=== PATIENT | male | born 1970 | race Caucasian/White ===

== ENCOUNTER 2017-12-25 16:21 | Emergency (ER) | payer OTHER, SELFPAY ==
[2017-12-25 16:22] VITALS: BP 125/78; PULSE 76; RESP 16; TEMP 36.3; O2SAT 98; BMI 25.8
--- NOTE | 2017-12-25 16:35 | RAD_ITS ---
STUDY: X-RAY - RIGHT WRIST REASON FOR EXAM: Male, 47 years old. Trauma. Pain. TECHNIQUE: 3 view(s) of the wrist were obtained. COMPARISON: None. FINDINGS: There is no evidence of fracture or dislocation. There are no significant degenerative changes. There are no radiodense foreign bodies. RAD/Wrist min 3 Views IMPRESSION: No fracture or dislocation. Electronically Signed: Shay Curtis, at 17:01 EDT Tel , Service support ,
--- NOTE | 2017-12-25 18:27 | ED.VISSUMM ---
- ER Visit Summary Date of Service: 12/25/17 Chief Complaint: Right wrist pain History of Present Illness: The patient is a 47 M presenting with right wrist pain. Patient states he fell down 2 steps 2 days ago. He was carrying a duffel bag. He lost his balance and fell catching himself with his right upper extremity. He did not hit his head or lose consciousness. He is left-handed. He complains of persistent pain in the right wrist. He is taking Aleve at home. Physical Examination: Vitals are stable. Patient is afebrile. Alert no acute distress. HEENT exam is unremarkable. Lungs are clear and equal bilaterally. Heart is regular rate and rhythm. Extremities mild lateral right wrist tenderness, no snuffbox tenderness, active full range of motion Skin is warm and dry. No focal neurologic deficit. Remainder of exam is unremarkable. Emergency Department Course and Treatment: X-ray right wrist shows no acute fracture. He is given a thumb spica splint. Advised to ice, elevate, use NSAIDs. Advised to follow-up with primary care physician. Advised return to ED for any worsening complaints. Disposition: Discharge home Impression: Right wrist injury This note was generated with [employer] dictation software. It may contain incorrect words, spelling, and punctuation that were not noted in review of the chart prior to signing ED Disposition - Plan for ED Patient: Chief Complaint: Upper Extremity Injury Referrals: Gurvinder Navarro MD [Primary Care Provider] -
--- NOTE | 2017-12-25 18:31 | ED.DEP ---
ED Disposition - Plan for ED Patient: Chief Complaint: Upper Extremity Injury Instructions: ED Sprain Wrist Referrals: Gurvinder Navarro MD [Primary Care Provider] -
[2017-12-25 18:42] VITALS: BP 129/96; PULSE 56; RESP 17; O2SAT 98
== END 2017-12-25 18:43 | disposition home or self-care (01) ==
LOC: ED 18:29
PROVIDERS: Emergency Provider Emergency Medicine; Family Provider Family Medicine; PCP Family Medicine
DX: S63.501A Unspecified sprain of right wrist, initial encounter (principal); W10.9XXA Fall (on) (from) unspecified stairs and steps, initial encounter; Y93.9 Activity, unspecified; Y92.9 Unspecified place or not applicable; Z79.899 Other long term (current) drug therapy
CPT/HCPCS: 73110; 99283

== ENCOUNTER 2018-07-24 16:47 | Emergency (ER) | payer OTHER, SELFPAY ==
[2018-07-24 16:48] VITALS: BP 114/89; PULSE 94; RESP 16; TEMP 36.9; O2SAT 97; BMI 27.4
--- NOTE | 2018-07-24 17:20 | ED.DCSUM_ITS ---
- ER Visit Summary Date of Service: 07/24/18 Chief Complaint: Right knee swelling. History of Present Illness: The patient is a 48 M nontraumatic right knee swelling over 2 weeks. History of similar in the past. History of psoriatic arthritis on methotrexate. No fevers. Denies any increased activity. Is followed by Dr. Navarro Reports called office today had appointment tomorrow however states he had to work. His next appointment would not be for a month. Uses Aleve as needed for pain. Physical Examination: General: Alert and oriented ?3, no acute distress HEENT: Normocephalic, atraumatic. Moist mucosa membranes Neck: supple, nontender. Cardiovascular: Regular rate and rhythm, no murmurs Respiratory: Normal breath sounds, symmetric, no distress Abdomen: Soft, nontender, nondistended Extremities: Nontender, no edema, pulses intact ?4. Right lower extremity: Knee extensor intact. There is suprapatellar swelling and swelling medial laterally. There is no erythema. No pain with short arc. Skin intact. Neurovascular intact distally. Neuro: no focal neurological deficits. Test Results: Right knee x-ray: Osteoarthritis Emergency Department Course and Treatment: Patient nontoxic, exam does not annette ear to be septic joint he had recurrent symptoms with history of psoriatic arthritis. Discussed with patient who performed knee aspiration with his consent. Written consent, risks and benefits discussed. Sterile conditions with sterile gloves and Betadine. Performed bedside with timeout 1831. Total of 10 cc yellow synovium obtained. This was sent for culture. 1 cc of Kenalog was injected into the joint which helped the patient in the past. No antibiotics at this time. He will follow-up with his orthopedist. All questions were answered. Treatment Plan: [] Disposition: Discharge Impression: Right knee swelling status post joint aspiration This note was generated with [employer] dictation software. It may contain incorrect words, spelling, and punctuation that were not noted in review of the chart prior to signing ED Disposition - Plan for ED Patient: Disposition: Home or Assisted Living Diagnosis: Swelling of right knee joint Referrals: Gurvinder Navarro MD [Primary Care Provider] - Shay Navarro MD [STAFF PHYSICIAN] - 5-7 Days Additional Instructions: Knee aspiration sent for culture and is pending. Status post 1 mL of Kenalog injected into the joint. Follow-up with your orthopedist.
--- NOTE | 2018-07-24 17:30 | RAD_ITS ---
STUDY: X-RAY - RIGHT KNEE REASON FOR EXAM: Male, 48 years old. Swelling TECHNIQUE: 4 view(s) of the knee. COMPARISON: None. FINDINGS: Normal visualized distal femur. Normal visualized proximal tibia and fibula. Normal proximal tibiofibular articulation. Narrowed medial femorotibial compartment. Normal lateral femorotibial compartment. Narrowed patellofemoral articulation. The soft tissue structures are unremarkable. RAD/Knee 4 or More Views IMPRESSION: Degenerative changes. No evidence for acute fracture Electronically Signed: Wilbert Arreaga MD at 17:52 EDT , Service support ,
[2018-07-24] MEDS: Triamcinolone Acetonide 40 MG/ML Vial IU (18:58)
== END 2018-07-24 19:08 | disposition home or self-care (01) ==
PROVIDERS: Emergency Provider Emergency Medicine; Family Provider Family Medicine; PCP Family Medicine
DX: M25.461 Effusion, right knee (principal); L40.50 Arthropathic psoriasis, unspecified; K21.9 Gastro-esophageal reflux disease without esophagitis
CPT/HCPCS: 20610; 73564; 87070; 87075; 87205; 99282

== ENCOUNTER → 2019-09-21 15:58 | Outpatient (CLI) | payer OTHER, SELFPAY ==
[2019-09-21 17:37] LABS: Absolute Lymphocyte Count 2.26 X10^3/uL (0.83-4.51); Absolute Neutrophil Count 3.7 X10^3/uL (2.0-7.7); Basophil% 1.5 % (0-1); Eosinophil# 0.08 X10^3/uL; Eosinophils% 1.2 % (0-5); Hematocrit 42.5 % (40-54); Hemoglobin 13.7 g/dL (13.0-16.5); Lymphocyte # 2.26 X10^3/ul (4.0); Lymphocyte % 33.6 % (19-41); Mean Corp Hgb Conc 32.2 g/dL (32-36); Mean Corpuscular Hgb 31.1 pg (27.0-32.0); Mean Corpuscular Volume 96.6 fL (80-94); Mean Platelet Vol. 9.3 fl (6.2-12.0); Monocyte# 0.58 X10^3/uL; Monocyte% 8.6 % (0-10); NRBC Flagged by Analyzer 0 % (0-5); Neutrophil # 3.69 X10^3/uL (2.7-7.7); Neutrophil % 54.8 % (47-70); Platelet Count 326 K/mm3 (150-450); RBC Distribution Width SD 45.4 fl (35.1-43.9); White Blood Count 6.7 K/mm3 (4.4-11.0)
[2019-09-21 18:10] LABS: AST(SGOT) 15 U/L (15-37); Alanine Aminotransfer ALT/SGPT 20 U/L (16-61); Albumin, Serum 3.6 g/dL (3.2-5.0); Alkaline Phosphatase 166 U/L (45-117); Bilirubin, Direct 0.11 mg/dL (0.00-0.30); Globulin 3.7 g/dL (2.2-4.2); Protein, Total 7.3 g/dL (6.4-8.2)
== END ==
PROVIDERS: PCP Family Medicine; Referring Provider Family Medicine; Visit Provider Family Medicine
DX: L40.50 Arthropathic psoriasis, unspecified (principal)
CPT/HCPCS: 36415; 80076; 85025

== ENCOUNTER → 2019-11-13 18:12 | Outpatient (CLI) | payer OTHER, SELFPAY | PROVIDERS: PCP Family Medicine | DX: R05 Cough (principal) | CPT/HCPCS: 87635; 94799; U0003 ==

== ENCOUNTER 2021-04-30 15:48 | Outpatient (CLI) | payer OTHER, SELFPAY ==
[2021-04-30 17:48] LABS: Absolute Lymphocyte Count 2.35 X10^3/uL (0.83-4.51); Absolute Neutrophil Count 3.6 X10^3/uL (2.0-7.7); Basophil# 0.07 X10^3/uL; Basophil% 1.1 % (0-1); Eosinophil# 0.13 X10^3/uL; Hematocrit 41.5 % (40-54); Hemoglobin 13.8 g/dL (13.0-16.5); Lymphocyte # 2.35 X10^3/ul (0.83-4.51); Lymphocyte % 35.7 % (19-41); Mean Corp Hgb Conc 33.3 g/dL (32-36); Mean Corpuscular Hgb 31.2 pg (27.0-32.0); Mean Corpuscular Volume 93.9 fL (80-94); Mean Platelet Vol. 9.5 fl (6.2-12.0); Monocyte# 0.38 X10^3/uL; Monocyte% 5.8 % (0-10); NRBC Flagged by Analyzer 0 % (0-5); Neutrophil # 3.63 X10^3/uL (2.7-7.7); Neutrophil % 55.1 % (47-70); Platelet Count 362 K/mm3 (150-450); RBC Distribution Width CV 12.8 % (11.6-14.6); Red Blood Count 4.42 M/mm3 (4.6-6.2); White Blood Count 6.6 K/mm3 (4.4-11.0)
[2021-04-30 18:02] LABS: Erythrocyte Sedimentation Rate 23 mm/hr (0-20)
[2021-04-30 18:10] LABS: ALB/GLOB Ratio 0.9 RATIO (0.9-2.4); AST(SGOT) 19 U/L (15-37); Alanine Aminotransfer ALT/SGPT 22 U/L (16-61); Albumin, Serum 3.6 g/dL (3.2-5.0); Alkaline Phosphatase 182 U/L (45-117); Anion Gap 5 (5-15); BUN 12 mg/dL (7-18); BUN/Creat Ratio 13.1 RATIO (10-20); CRP 8.45 mg/L (0.0-3.0); Calcium,Total 8.5 mg/dL (8.5-10.1); Chloride 107 mmol/L (98-107); Creatinine, Serum 0.91 mg/dL (0.70-1.30); EST Glomerular Filtration Rate 93 mL/min (>60); Est Glom Filt Rate - Afr Amer 112 mL/min (>60); Globulin 4.2 g/dL (2.2-4.2); Glucose 87 mg/dL (74-106); Potassium 3.9 mmol/L (3.5-5.1); Protein, Total 7.8 g/dL (6.4-8.2); Rheumatoid Factor < 10.0 IU/mL (<15); Sodium Level 140 mmol/L (136-145)
[2021-05-01 09:54] LABS: Hepatitis B Surface Antibody Non-Reactive; Hepatitis B Surface Antigen Non-Reactive (Nonreactive); Hepatitis C Antibody Non-Reactive (Nonreactive)
[2021-05-04 22:07] LABS: QNTFERON TB Mitogen Value > 10.00 IU/mL (.); QNTFERON TB Nil Value 0.03 IU/mL (.); QNTFERON TB1+ Ag Value 0.03 IU/mL (.); QNTFERON TB2+ Ag Value 0.04 IU/mL (.)
[2021-05-04 22:33] LABS: CCP IgG Antibodies 2 units (0-19); QNTIFERON TB Positive Criteria Negative (Negative)
== END 2021-04-30 23:59 | disposition short-term general hospital (02) ==
LOC: MTLAB 15:49
PROVIDERS: PCP Family Medicine; Referring Provider Internal Medicine Rheumatology; Visit Provider Internal Medicine Rheumatology
DX: L40.59 Other psoriatic arthropathy (principal); L40.8 Other psoriasis; E78.5 Hyperlipidemia, unspecified; F32.A Depression, unspecified
CPT/HCPCS: 36415; 80053; 85025; 85652; 86140; 86200; 86431; 86480; 86706; 86803; 87340

== ENCOUNTER 2021-05-01 18:01 | Outpatient (CLI) | payer OTHER, SELFPAY ==
[2021-05-01 18:03] LABS: Pathologist Comment May follow
[2021-05-01 19:15] LABS: Synovial Fld Polynuclear WBC # 0.229 10^3/uL
[2021-05-01 20:32] LABS: RBC /Synovial Fluid 0.009 10^6/uL (0)
[2021-05-01 21:02] LABS: AUTO B FLUID DILUENT BKGD CT WBC <0.1 RBC <0.01 (W<.1,R<.01); CRYSTALS, BODY FLUID See PATH REV; Source / Synovial Fluid R KNEE; Source- Body Fluid SYNOVIAL
[2021-05-01 21:03] LABS: Appearance /Synovial Fluid Cloudy (CLEAR); Color / Synovial Fluid Yellow (Pale Yellow); Lymph 71 %; Monocyte /Synovial Fluid 11 %; Neutrophil 13 % (0-25); Other Cell /Synovial Fluid 5 %
[2021-05-04 12:44] LABS: Pathologist Review Reviewed
== END 2021-05-01 23:59 | disposition short-term general hospital (02) ==
PROVIDERS: PCP Family Medicine; Visit Provider Internal Medicine Rheumatology
DX: L40.59 Other psoriatic arthropathy (principal); L40.8 Other psoriasis; E78.5 Hyperlipidemia, unspecified; F32.A Depression, unspecified; Z79.899 Other long term (current) drug therapy
CPT/HCPCS: 87070; 87075; 87205; 89050; 89051; 89060

== ENCOUNTER 2021-07-01 15:56 | Outpatient (CLI) | payer OTHER, SELFPAY ==
[2021-07-01 17:41] LABS: Absolute Lymphocyte Count 2.12 X10^3/uL (0.83-4.51); Absolute Neutrophil Count 4.5 X10^3/uL (2.0-7.7); Basophil# 0.08 X10^3/uL; Basophil% 1.1 % (0-1); Eosinophils% 1.4 % (0-5); Hematocrit 42.1 % (40-54); Hemoglobin 14.7 g/dL (13.0-16.5); Lymphocyte # 2.12 X10^3/ul (0.83-4.51); Mean Corp Hgb Conc 34.9 g/dL (32-36); Mean Corpuscular Hgb 32.8 pg (27.0-32.0); Mean Platelet Vol. 9.9 fl (6.2-12.0); Monocyte% 6.8 % (0-10); NRBC Flagged by Analyzer 0 % (0-5); Neutrophil % 61.6 % (47-70); Platelet Count 291 K/mm3 (150-450); RBC Distribution Width CV 14.1 % (11.6-14.6); Red Blood Count 4.48 M/mm3 (4.6-6.2); White Blood Count 7.3 K/mm3 (4.4-11.0)
[2021-07-01 18:08] LABS: ALB/GLOB Ratio 1.1 RATIO (0.9-2.4); AST(SGOT) 24 U/L (15-37); Alanine Aminotransfer ALT/SGPT 28 U/L (16-61); Albumin, Serum 3.8 g/dL (3.2-5.0); Alkaline Phosphatase 149 U/L (45-117); Anion Gap 4 (5-15); BUN 12 mg/dL (7-18); BUN/Creat Ratio 11.2 RATIO (10-20); Calcium,Total 8.2 mg/dL (8.5-10.1); Chloride 109 mmol/L (98-107); Creatinine, Serum 1.07 mg/dL (0.70-1.30); EST Glomerular Filtration Rate 77 mL/min (>60); Est Glom Filt Rate - Afr Amer 93 mL/min (>60); Globulin 3.4 g/dL (2.2-4.2); Glucose 99 mg/dL (74-106); Potassium 3.9 mmol/L (3.5-5.1); Protein, Total 7.2 g/dL (6.4-8.2); Sodium Level 141 mmol/L (136-145)
== END 2021-07-01 23:59 | disposition home or self-care (01) ==
LOC: MTLAB 15:57
PROVIDERS: PCP Family Medicine; Referring Provider Internal Medicine Rheumatology; Visit Provider Internal Medicine Rheumatology
DX: L40.59 Other psoriatic arthropathy (principal); M25.561 Pain in right knee; L40.8 Other psoriasis; F32.A Depression, unspecified; E78.5 Hyperlipidemia, unspecified; Z79.899 Other long term (current) drug therapy
CPT/HCPCS: 36415; 80053; 85025

== ENCOUNTER → 2021-09-02 | Outpatient (CLI) | payer OTHER, SELFPAY ==
[2021-09-02 17:32] LABS: Absolute Lymphocyte Count 1.91 X10^3/uL (0.83-4.51); Absolute Neutrophil Count 3.9 X10^3/uL (2.0-7.7); Basophil# 0.06 X10^3/uL; Eosinophil# 0.11 X10^3/uL; Eosinophils% 1.8 % (0-5); Hematocrit 43.4 % (40-54); Hemoglobin 14.6 g/dL (13.0-16.5); Lymphocyte # 1.91 X10^3/ul (0.83-4.51); Lymphocyte % 30.4 % (19-41); Mean Corp Hgb Conc 33.6 g/dL (32-36); Mean Corpuscular Hgb 32.5 pg (27.0-32.0); Mean Corpuscular Volume 96.7 fL (80-94); Mean Platelet Vol. 9.7 fl (6.2-12.0); Monocyte% 4.8 % (0-10); NRBC Flagged by Analyzer 0 % (0-5); Neutrophil # 3.89 X10^3/uL (2.7-7.7); Neutrophil % 61.8 % (47-70); Platelet Count 302 K/mm3 (150-450); RBC Distribution Width CV 13.1 % (11.6-14.6); RBC Distribution Width SD 46.2 fl (35.1-43.9); Red Blood Count 4.49 M/mm3 (4.6-6.2); White Blood Count 6.3 K/mm3 (4.4-11.0)
[2021-09-02 18:28] LABS: AST(SGOT) 23 U/L (15-37); Alanine Aminotransfer ALT/SGPT 35 U/L (16-61); Albumin, Serum 3.7 g/dL (3.2-5.0); Alkaline Phosphatase 146 U/L (45-117); Anion Gap 8 (5-15); BUN 14 mg/dL (7-18); Calcium,Total 8.4 mg/dL (8.5-10.1); Chloride 108 mmol/L (98-107); Cholesterol 260 mg/dL (200); Creatinine, Serum 1.17 mg/dL (0.70-1.30); EST Glomerular Filtration Rate 69 mL/min (>60); Est Glom Filt Rate - Afr Amer 84 mL/min (>60); Globulin 3.6 g/dL (2.2-4.2); Glucose 91 mg/dL (74-106); High Density Lipoprotein 29 mg/dL; Potassium 3.5 mmol/L (3.5-5.1); Protein, Total 7.3 g/dL (6.4-8.2); Sodium Level 140 mmol/L (136-145); Thyroid Stim Hormone (TSH) 1.79 uIU/mL (0.358-3.74); Triglycerides 498 mg/dL
[2021-09-05 07:32] LABS: Anti-Thyroglobulin AB < 1.0 IU/mL (0.0-0.9); Thyroid Peroxidase AB < 8 IU/mL (0-34)
[2021-09-05 07:33] LABS: Thyroglobulin, Serum Qt. 12.7 ng/mL (1.4-29.2)
== END | disposition home or self-care (01) ==
LOC: MFPLAB 16:32
PROVIDERS: PCP Family Medicine; Visit Provider Family Medicine
DX: K21.9 Gastro-esophageal reflux disease without esophagitis (principal); E04.1 Nontoxic single thyroid nodule; E78.5 Hyperlipidemia, unspecified
CPT/HCPCS: 36415; 80053; 80061; 84432; 84439; 84443; 85025; 86376; 86800

== ENCOUNTER → 2021-09-10 | Outpatient (CLI) | payer OTHER, SELFPAY ==
[2021-09-10 10:50] LABS: Cholesterol 233 mg/dL (200); High Density Lipoprotein 38 mg/dL; Triglycerides 208 mg/dL; Very Low Density Lipoprotein 42 mg/dL (5-40)
== END | disposition home or self-care (01) ==
LOC: MFPLAB 08:28
PROVIDERS: PCP Family Medicine; Referring Provider Family Medicine; Visit Provider Family Medicine
DX: E78.5 Hyperlipidemia, unspecified (principal)
CPT/HCPCS: 36415; 80061

== ENCOUNTER → 2021-09-14 | Outpatient (CLI) | payer OTHER, SELFPAY ==
--- NOTE | 2021-09-14 12:00 | US_ITS ---
STUDY: THYROID ULTRASOUND REASON FOR EXAM: Male, 51 years old. THYROID NODULE TECHNIQUE: Ultrasound evaluation of the thyroid was performed with real-time and static aguilar-scale imaging. COMPARISON: Prior comparison studies are not available for review at this time. FINDINGS: RIGHT LOBE: The right lobe of the thyroid gland measures 4.1 x 1.8 x 1.8cm. There is a homogeneous echotexture. There is a nodule. This is 9 x 5 x 9 mm. The lesion is solid with regular margins and intra-nodular doppler flow. LEFT LOBE: The left lobe of the thyroid gland measures 4.1 x 1.5 x 1.2 cm. There is a homogeneous echotexture. There are no demonstrated solid, cystic or complex lesions. ISTHMUS: The isthmus measures 1 mm. US/Thyroid IMPRESSION: There are RIGHT nodules. This nodule is mixed cystic and solid, anechoic, [id number], smoothly marginated and contains no echogenic foci. TI-RADS points: 1. TI-RADS category: TR1. This nodule is benign and no FNA or follow-up is necessary. Electronically Signed: Sung Ford MD at 15:08 EDT ,
== END | disposition home or self-care (01) ==
PROVIDERS: PCP Family Medicine; Referring Provider Family Medicine; Visit Provider Family Medicine
DX: E04.1 Nontoxic single thyroid nodule (principal)
CPT/HCPCS: 76536

== ENCOUNTER → 2021-10-07 | Outpatient (CLI) | payer OTHER, SELFPAY ==
[2021-10-07 17:37] LABS: Absolute Lymphocyte Count 2.09 X10^3/uL (0.83-4.51); Absolute Neutrophil Count 4.5 X10^3/uL (2.0-7.7); Basophil# 0.06 X10^3/uL; Basophil% 0.8 % (0-1); Eosinophil# 0.11 X10^3/uL; Eosinophils% 1.5 % (0-5); Hematocrit 45.2 % (40-54); Hemoglobin 14.9 g/dL (13.0-16.5); Lymphocyte # 2.09 X10^3/ul (0.83-4.51); Lymphocyte % 28.1 % (19-41); Mean Corpuscular Hgb 32.6 pg (27.0-32.0); Mean Corpuscular Volume 98.9 fL (80-94); Mean Platelet Vol. 9.9 fl (6.2-12.0); Monocyte# 0.66 X10^3/uL; Monocyte% 8.9 % (0-10); NRBC Flagged by Analyzer 0 % (0-5); Neutrophil # 4.48 X10^3/uL (2.7-7.7); Neutrophil % 60.3 % (47-70); Platelet Count 320 K/mm3 (150-450); RBC Distribution Width CV 13.2 % (11.6-14.6); Red Blood Count 4.57 M/mm3 (4.6-6.2); White Blood Count 7.4 K/mm3 (4.4-11.0)
[2021-10-07 18:18] LABS: ALB/GLOB Ratio 1.2 RATIO (0.9-2.4); AST(SGOT) 28 U/L (15-37); Alanine Aminotransfer ALT/SGPT 51 U/L (16-61); Albumin, Serum 4.1 g/dL (3.2-5.0); Alkaline Phosphatase 142 U/L (45-117); Anion Gap 5 (5-15); BUN 10 mg/dL (7-18); Calcium,Total 8.7 mg/dL (8.5-10.1); Chloride 106 mmol/L (98-107); Creatinine, Serum 1.25 mg/dL (0.70-1.30); EST Glomerular Filtration Rate 64 mL/min (>60); Est Glom Filt Rate - Afr Amer 78 mL/min (>60); Globulin 3.3 g/dL (2.2-4.2); Glucose 88 mg/dL (74-106); Potassium 3.7 mmol/L (3.5-5.1); Protein, Total 7.4 g/dL (6.4-8.2); Sodium Level 139 mmol/L (136-145)
== END | disposition home or self-care (01) ==
LOC: MTLAB 16:34
PROVIDERS: PCP Family Medicine; Referring Provider Internal Medicine Rheumatology; Visit Provider Internal Medicine Rheumatology
DX: L40.59 Other psoriatic arthropathy (principal); M25.561 Pain in right knee; L40.8 Other psoriasis; F32.A Depression, unspecified; E78.5 Hyperlipidemia, unspecified; Z79.899 Other long term (current) drug therapy
CPT/HCPCS: 36415; 80053; 85025

== ENCOUNTER 2021-12-29 07:01 | Day surgery (SDC) | payer OTHER, SELFPAY ==
[2021-12-29] VITALS (7 sets, daily range): BP systolic 94–144; BP diastolic 68–97; PULSE 57–67; RESP 17–18; TEMP 36.2–36.4; O2SAT 97–98; BMI 27.0
--- NOTE | 2021-12-29 07:06 | HP.PCM_ITS ---
History and Physical Date of Admission: 12/29/21 Visit Reasons:?Gastroesophageal reflux disease (GERD) Chief Complaint: GERD [employer] Permit Agent Required: No Is patient in pain?: No Allergies No Known Allergies Allergy (Verified 11/23/21 14:29) Medications citalopram 40 mg tablet 40 mg PO DAILY 02/29/16 [History Confirmed 11/23/21] methotrexate sodium 2.5 mg tablet 15 mg PO Q7D 02/29/16 [History Confirmed 11/23/21] pantoprazole 40 mg tablet,delayed release 40 mg PO DAILY 07/24/18 [History Confirmed 11/23/21] rosuvastatin 10 mg tablet 20 mg PO QHS 07/24/18 [History Confirmed 11/23/21] acetaminophen 325 mg capsule (Tylenol) 325 mg PO ONCE PRN 12/01/20 [History Confirmed 11/23/21] PFSH Medical History? Depression Surgical History? H/O knee surgery Family History? Other Arthritis Heart disease Social History? household members:? none housing:? house Smoking Status:? Never smoker Tobacco: How many years used:? 38 Smokeless tobacco user:? snuff alcohol intake:? current alcohol intake frequency: 0-2 drinks per day what type of physical activity do you participate in:? none do you feel safe at home:? Yes HPI HPI HPI: SILVESTRE VIDAL, is a 51 M who presents to the office today for surgical consultation regarding gastroesophageal reflux disease.? The patient is being referred by Dr Adria Conrad and a written copy of my surgical consult and recommendations will be returned to him.? Per patient report his reflux symptoms started in 2017 with epigastric and retrosternal burning.? Patient's been taking [id number] Pepcid.? His symptoms are not controlled.? He currently is on pantoprazole 40 mg orally daily.? He also requires methotrexate for psoriatic arthritis.? Patient states that he has a remote upper endoscopy perhaps in 2005.? He has never had a colonoscopy and he states that his mother had a history of colon cancer.? He stopped chewing tobacco about 6 months ago.? That seems to have helped but he still drinks a significant mount of Mountain Dew.? 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 He has not noticed any change in his stool no bright red blood per rectum or melena.? No abdominal pain.? Since he stopped using chewing tobacco he is gained 8 pounds in weight. He denies any abdominal pain.? He states that other than for psoriatic arthritis he feels that his health is good.? No history of DVT ROS General General: No weight change, appetite, fatigue, colon cancer, breast cancer or weakness HEENT HEENT: No difficulty swallowing, eye injury, eye surgery, swollen glands or hoarseness Endo Endocrine: No thyroid disease, diabetes mellitus, thyroid cancer, Hair loss, heat intolerance or cold intolerance Skin Skin: No rash or changing moles Breast Breast: No left breast lump, right breast lump, nipple discharge, breast pain, abnormal mammogram, abnormal US or breast enlargement Musc Musculoskeletal: Yes back problems and arthritis; No rheumatoid arthritis, gout or joint pain Cardio Cardiovascular: No murmur, pacemaker, heart disease, atrial fibrillation, high blood pressure, heart attack, heart stent, palpitations, shortness of breat with exertion or chest pain Psych Psychiatric: Yes depression and anxiety; No hearing voices Resp Respiratory: Yes shortness of breath, No sleep apnea, No cough, No COPD, No asthma, No emphysema and No wheezing Gastro Gastrointestinal: No abdominal pain, No nausea or vomiting, Yes diarrhea, No constipation, No blood in stool, Yes acid reflux, No hemorrhoids, No ulcers, No gallbladder problem and No black,tarry stools Daniel Hematologic: No blood thinners, No blood disorders, No bleeding, No anemia and No blood clots Neuro Neurologic: No system reviewed and no additional complaints, except as documented, No as per HPI, No abnormal gait, No abnormal hearing, No abnormal movements, No abnormal speech, No behavioral changes, No burning sensations, No confusion, No convulsions, No disequilibrium, No dizziness, No localized weakness, No frequent falls, No headache(s), No lack of coordination, No loss of vision, No memory loss, No numbness, No other visual disturbances, No radicular pain, No restless legs, No sensory deficit, No syncope, No tingling, No tremor(s), No weakness and No other Exam Const General: cooperative, comfortable and no acute distress Nutritional Appearance: average body habitus Orientation: alert and awake [facility] Head: normal to inspection Eyes General: appearance normal, both eyes and all related structures Neck Neck: normal visual inspection Chest Chest palpation & inspection: normal inspection of the chest Resp Effort & Inspection: normal respiratory effort Auscultation: clear to auscultation bilaterally Cardio Rate: regular rate Rhythm: regular rhythm GI Palpation: soft and no hepatosplenomegaly Auscultation: normal bowel sounds Musc Cervical Spine: normal cervical lordosis Neuro General: patient alert, patient awake, patient oriented x3 and oriented Extrem General: no calf tenderness Psych Appearance: grossly normal Assessment and Plan Assessment and Plan (1) Gastroesophageal reflux disease: (2) Depression: ?Status:?Acute (3) HNP (herniated nucleus pulposus), lumbar: ?Status:?Acute (4) H/O knee surgery: ?Status:?Acute (5) Screening for intestinal cancer: ?Status:?Acute Plan The patient has had a very long history of gastroesophageal reflux disease.? Currently he is managed with Pepcid 20 mg in the morning but he has breakthrough episodes.? States he does not take additional medication. In addition he states that his mother has had a history of colon cancer.? The patient has never had a colonoscopy.? He states that he has previously submitted stool cards. I propose for him a combined esophagogastroduodenoscopy with possible biopsy and colonoscopy with possible biopsy or polypectomy as indicated.? He is aware of the technique, benefit, risk, alternatives.? I anticipate monitored anesthesia care to assure that he has a good experience.? He has had an opportunity to ask and have questions answered.? We will proceed as noted. Copy: Dr Adria Dunham M.D., F.A.C.S. I have re-examined the patient. There are no clinical changes since date of exam. Cooper Dunham M.D., F.A.C.S.
[2021-12-29] MEDS: Lactated Ringers 1,000 ML 15 ML IV (07:15)
--- NOTE | 2021-12-29 08:30 | EGD_PTH ---
PATIENT: SILVESTRE VIDAL Jr. LOC: EN U#:[id number] AGE/SX: 51/M ROOM: RE12/29/[address]: Dr. Cooper Dunham MD : 1970 BED: DIS: 12/29/2021 SPEC #: [id number] RECD: 12/29/21 11:50 STATUS: RUPINDER REEbenezer #: [id number] ALBINO: 12/29/21 08:[address]: Cooper Dunham DEPT: SURGICAL PATHOLOGY RECD BY: Ellen Caban ENTERED: 12/29/21 12:39 SP TYPE: EGD BIOPSY OT DR: Dr. Adria Conrad MD Tissues: A - Gastric mucous membrane B - Stomach, NOS C - Stomach, NOS D - Esophagus, NOS Procedures: Special Stain Group II Special Stain Group I Surgery Specimen Level IV GMS Stain (control) Alcian Blue/PAS (control) HEADER OPERATION: Colonoscopy, EGD (MAC) with biopsies PRE-OP DIAGNOSIS: GERD, screening TISSUE SUBMITTED: A ? Antrum biopsy for H. pylori, B ? Greater curvature polyp biopsy, C ? Gastroesophageal junction biopsy, D ? Mid esophagus biopsy MICROSCOPIC DIAGNOSIS A. Antrum, biopsy: Mild gastritis. See microscopic description and comment. B. Greater curvature polyp, biopsy: Fundic gland polyp. C. Gastroesophageal junction, biopsy: Fragments of gastroesophageal mucosa with focal ulceration, acute and chronic inflammation. Intestinal metaplasia (goblet cell metaplasia) not identified. See comment. D. Mid esophagus, biopsy: Fragments of benign squamous epithelium. SJ:rg 12/30/2021 COMMENT A. The results of immunohistochemistry for Helicobacter pylori will be reported separately ([id number]). C. Alcian blue/PAS stain with matched control is used in the evaluation of the specimen. Special stain for fungi is negative for organisms; matched control is appropriate. MICROSCOPIC DESCRIPTION Slides are reviewed. A. The specimen shows fragments of gastric mucosa with chronic inflammatory cell infiltrates in the lamina propria consisting of lymphocytes and plasma cells, consistent with mild chronic gastritis. GROSS DESCRIPTION A - Received in fixative is one container labeled with the patient's name and designated antrum biopsy. The specimen consists of one irregular fragment of light caldwell soft tissue that measures 0.3 x 0.3 x 0.1 cm. The specimen is totally submitted in one cassette. B - Received in fixative is one container labeled with the patient's name and designated greater curvature polyp biopsy. The specimen consists of one irregular fragment of light caldwell soft tissue that measures 0.5 x 0.4 x 0.1 cm. The specimen is totally submitted in one cassette. C - Received in fixative is one container labeled with the patient's name and designated GE junction biopsy. The specimen consists of multiple irregular fragments of light caldwell soft tissue that in aggregate measure 1 x 0.5 x 0.1 cm. The specimen is totally submitted in one cassette. D - Received in fixative is one container labeled with the patient's name and designated mid esophagus biopsy. The specimen consists of two irregular fragments of light caldwell soft tissue that in aggregate measure 0.6 x 0.4 x 0.1 cm. The specimen is totally submitted in one cassette. / JADE:rosa 12/29/2021 TC:2 CPT: 57808 x4, 01158, 58725
--- NOTE | 2021-12-29 08:30 | IMM_PTH ---
PATIENT: SILVESTRE VIDAL Jr. LOC: [facility] U#:[id number] AGE/SX: 51/M ROOM: RE12/29/[address]: Dr. Cooper Dunham MD : 1970 BED: DIS: 12/29/2021 SPEC #: [id number] RECD: 12/29/21 13:35 STATUS: RUPINDER REQ #: [id number] ALBINO: 12/29/21 08:[address]: Cooper Dunham DEPT: IMMUNOHISTOCHEMISTRY RECD BY: Anay Patel ENTERED: 12/29/21 13:35 SP TYPE: IMMUNO OTHR DR: Dr. Adria Conrad MD Tissues: A - Stomach, NOS Procedures: H Pylori (initial) PHYSICIAN & INSTITUTION [place] [address] SPECIMEN INFORMATION: Tissue Source: A ? Antrum biopsy Clinical Info: GERD, screening Specimen Number: [id number] CPT code: 08251 METHODOLOGY: Deparaffinized sections of prefer/formalin-fixed tissue or PAP/DQ stained slides are incubated with monoclonal/polyclonal antibodies/oligonucleotide probes. Localization is made via biotin free immunoperoxidase method. Appropriate controls are performed and reacted as expected. Results on target cell population are indicated in the following table: RESULTS: ANTIBODY / CLONE RESULT Block A H Pylori (polyclonal) negative These tests were developed and their performance characteristics determined by [facility]. They may not have been cleared or approved by the U.S. Food and Drug Administration. The FDA has determined that such clearance or approval is not necessary. The above immunohistochemical/dualISH markers are ordered and reviewed by the Pathologist. INTERPRETATION: A. Antrum, biopsy: Negative for Helicobacter pylori organisms. SJ:rosa 12/30/2021
--- NOTE | 2021-12-29 09:41 | OP.EGD_ITS ---
Patient Name: Dinh Barrett Procedure Date: 12/29/2021 9:08 AM Date of : 1970 Age: 51 Procedure: Upper GI endoscopy Indications: Suspected esophageal reflux Providers: Cooper Dunham MD Medicines: See the Anesthesia note for documentation of the administered medications Complications: No immediate complications. Procedure: Pre-Anesthesia Assessment: - Prior to the procedure, a History and Physical was performed, and patient medications and allergies were reviewed. The patient's tolerance of previous anesthesia was also reviewed. The risks and benefits of the procedure and the sedation options and risks were discussed with the patient. All questions were answered, and informed consent was obtained. Prior Anticoagulants: The patient has taken no previous anticoagulant or antiplatelet agents. ASA Grade Assessment: II - A patient with mild systemic disease. After reviewing the risks and benefits, the patient was deemed in satisfactory condition to undergo the procedure. After obtaining informed consent, the endoscope was passed under direct vision. Throughout the procedure, the patient's blood pressure, pulse, and oxygen saturations were monitored continuously. The colonoscope was introduced through the mouth, and advanced to the second part of duodenum. The upper GI endoscopy was accomplished without difficulty. The patient tolerated the procedure well. Scope In: 9:16:23 AM Scope Out: 9:24:39 AM Total Procedure Duration Time 0 hours 8 minutes 16 seconds Findings: The middle third of the esophagus was normal. Biopsies were taken with a cold forceps for histology. LA Grade A (one or more mucosal breaks less than 5 mm, not extending between tops of 2 mucosal folds) esophagitis with no bleeding was found 35 cm from the incisors. Biopsies were taken with a cold forceps for histology. A small hiatal hernia was present. Multiple pedunculated and sessile polyps with no bleeding and no stigmata of recent bleeding were found in the gastric fundus and on the greater curvature of the stomach. The polyp was removed with a cold biopsy forceps. Resection and retrieval were complete. Diffuse mildly erythematous mucosa without bleeding was found in the gastric antrum. Biopsies were taken with a cold forceps for histology. The examined duodenum was normal. Impression: - Normal middle third of esophagus. Biopsied. - LA Grade A reflux esophagitis. Biopsied. - Small hiatal hernia. - Multiple gastric polyps. Resected and retrieved. - Erythematous mucosa in the antrum. Biopsied. - Normal examined duodenum. Recommendation: - Discharge patient to home. - Resume previous diet. - Continue present medications. - Telephone my office for pathology results in 1 week. Consider office follow-up if you would want to pursue additional surgical evaluation for possible treatment of your hiatal hernia and reflux disease Procedure Code(s): --- Professional --- 83795, Esophagogastroduodenoscopy, flexible, transoral; with biopsy, single or multiple Diagnosis Code(s): --- Professional --- K21.0, Gastro-esophageal reflux disease with esophagitis K44.9, Diaphragmatic hernia without obstruction or gangrene K31.7, Polyp of stomach and duodenum K31.89, Other diseases of stomach and duodenum CPT copyright 2017 [employer]. All rights reserved. The codes documented in this report are preliminary and upon certified procedural coder review may be revised to meet current compliance requirements. Cooper Dunham MD 12/29/2021 9:41:16 AM This report has been signed electronically. Number of Addenda: 0 Note Initiated On: 12/29/2021 9:08 AM
--- NOTE | 2021-12-29 09:42 | OP.CCLET_ITS ---
12/29/2021 Adria Conrad [address] [place] [address] Re : Upper GI endoscopy procedure for [facility] Dear Dr. Conrad This procedure was performed on Wednesday, December 29, 2021. My impressions and recommendations are as follows: Impressions : - Normal middle third of esophagus. Biopsied. - LA Grade A reflux esophagitis. Biopsied. - Small hiatal hernia. - Multiple gastric polyps. Resected and retrieved. - Erythematous mucosa in the antrum. Biopsied. - Normal examined duodenum. Recommendations : - Discharge patient to home. - Resume previous diet. - Continue present medications. - Telephone my office for pathology results in 1 week. Consider office follow-up if you would want to pursue additional surgical evaluation for possible treatment of your hiatal hernia and reflux disease My findings are described in the full procedure note, which is enclosed. If I can be of further assistance, please feel free to contact me at Doctor phone number(s): Work: . Sincerely, Cooper Dunham MD 12/29/2021 9:41:16 AM This report has been signed electronically.
--- NOTE | 2021-12-29 09:45 | OP.COLON_ITS ---
Patient Name: Dinh Barrett Procedure Date: 12/29/2021 9:25 AM Date of : 1970 Age: 51 Procedure: Colonoscopy Indications: Screening for colorectal malignant neoplasm Providers: Cooper Dunham MD Medicines: See the Anesthesia note for documentation of the administered medications Patient Profile: Last Colonoscopy: none. The patient's first colonoscopy is today. Complications: No immediate complications. Procedure: Pre-Anesthesia Assessment: - Prior to the procedure, a History and Physical was performed, and patient medications and allergies were reviewed. The patient's tolerance of previous anesthesia was also reviewed. The risks and benefits of the procedure and the sedation options and risks were discussed with the patient. All questions were answered, and informed consent was obtained. Prior Anticoagulants: The patient has taken no previous anticoagulant or antiplatelet agents. ASA Grade Assessment: II - A patient with mild systemic disease. After reviewing the risks and benefits, the patient was deemed in satisfactory condition to undergo the procedure. After I obtained informed consent, the scope was passed under direct vision. Throughout the procedure, the patient's blood pressure, pulse, and oxygen saturations were monitored continuously. The colonoscope was introduced through the anus and advanced to the cecum, identified by appendiceal orifice and ileocecal valve. The colonoscopy was performed without difficulty. The patient tolerated the procedure well. The quality of the bowel preparation was good. The ileocecal valve and the appendiceal orifice were photographed. Scope In: 9:26:28 AM Scope Withdrawal Time 0 hours 6 minutes 5 seconds Scope Out: 9:34:41 AM Total Procedure Duration Time 0 hours 8 minutes 13 seconds Findings: The digital rectal exam findings include non-thrombosed internal hemorrhoids and internal hemorrhoids (Grade I). Pertinent negatives include normal prostate (size, shape, and consistency). Multiple diverticula were found in the entire colon. The exam was otherwise without abnormality. Impression: - Non-thrombosed internal hemorrhoids and internal hemorrhoids (Grade I) found on digital rectal exam. - Diverticulosis in the entire examined colon. - The examination was otherwise normal. - No specimens collected. Recommendation: - Discharge patient to home. - Resume previous diet. - Continue present medications. - Repeat colonoscopy in 10 years for screening purposes. Procedure Code(s): --- Professional --- 34085, Colonoscopy, flexible; diagnostic, including collection of specimen(s) by brushing or washing, when performed (separate procedure) Diagnosis Code(s): --- Professional --- Z12.11, Encounter for screening for malignant neoplasm of colon K64.0, First degree hemorrhoids K57.30, Diverticulosis of large intestine without perforation or abscess without bleeding CPT copyright 2017 [employer]. All rights reserved. The codes documented in this report are preliminary and upon certified procedural coder review may be revised to meet current compliance requirements. Cooper Dunham MD 12/29/2021 9:44:59 AM This report has been signed electronically. Number of Addenda: 0 Note Initiated On: 12/29/2021 9:25 AM
--- NOTE | 2021-12-29 09:46 | OP.CCLET_ITS ---
12/29/2021 Adria Conrad [address] [place] [address] Re : Colonoscopy procedure for [facility] Dear Dr. Conrad This procedure was performed on Wednesday, December 29, 2021. My impressions and recommendations are as follows: Impressions : - Non-thrombosed internal hemorrhoids and internal hemorrhoids (Grade I) found on digital rectal exam. - Diverticulosis in the entire examined colon. - The examination was otherwise normal. - No specimens collected. Recommendations : - Discharge patient to home. - Resume previous diet. - Continue present medications. - Repeat colonoscopy in 10 years for screening purposes. My findings are described in the full procedure note, which is enclosed. If I can be of further assistance, please feel free to contact me at Doctor phone number(s): Work: . Sincerely, Cooper Dunham MD 12/29/2021 9:44:59 AM This report has been signed electronically.
== END 2021-12-29 10:21 | disposition home or self-care (01) ==
LOC: EN 07:03 → AC 07:04
PROVIDERS: PCP Family Medicine; Referring Provider Family Medicine; Visit Provider Surgery
PROC: 0DJD8ZZ Inspection of Lower Intestinal Tract, Via Natural or Artificial Opening Endoscopic (ICD-10-PCS; CPT 45378; principal; 2021-12-29 08:25)
DX: K21.00 Gastro-esophageal reflux disease with esophagitis, without bleeding (principal); K31.89 Other diseases of stomach and duodenum; K29.50 Unspecified chronic gastritis without bleeding; K31.7 Polyp of stomach and duodenum; K57.30 Diverticulosis of large intestine without perforation or abscess without bleeding; K64.0 First degree hemorrhoids; K44.9 Diaphragmatic hernia without obstruction or gangrene; F32.A Depression, unspecified; E78.00 Pure hypercholesterolemia, unspecified; Z79.899 Other long term (current) drug therapy; Z87.891 Personal history of nicotine dependence
CPT/HCPCS: 45378; 43239; 88305; 88312; 88313; 88342; J7120; J2405

== ENCOUNTER → 2021-12-30 | Outpatient (CLI) | payer OTHER, SELFPAY ==
[2021-12-30 17:48] LABS: Absolute Lymphocyte Count 2.64 X10^3/uL (0.83-4.51); Absolute Neutrophil Count 4.6 X10^3/uL (2.0-7.7); Basophil# 0.08 X10^3/uL; Eosinophils% 1.3 % (0-5); Hematocrit 46.3 % (40-54); Hemoglobin 15.9 g/dL (13.0-16.5); Lymphocyte # 2.64 X10^3/ul (0.83-4.51); Lymphocyte % 33.7 % (19-41); Mean Corp Hgb Conc 34.3 g/dL (32-36); Mean Corpuscular Hgb 33.1 pg (27.0-32.0); Mean Corpuscular Volume 96.5 fL (80-94); Mean Platelet Vol. 9.7 fl (6.2-12.0); Monocyte# 0.45 X10^3/uL; Monocyte% 5.7 % (0-10); NRBC Flagged by Analyzer 0 % (0-5); Neutrophil # 4.55 X10^3/uL (2.7-7.7); Platelet Count 368 K/mm3 (150-450); RBC Distribution Width CV 12.5 % (11.6-14.6); RBC Distribution Width SD 43.8 fl (35.1-43.9); White Blood Count 7.8 K/mm3 (4.4-11.0)
[2021-12-30 17:51] LABS: ALB/GLOB Ratio 1.1 RATIO (0.9-2.4); AST(SGOT) 28 U/L (15-37); Alanine Aminotransfer ALT/SGPT 38 U/L (16-61); Albumin, Serum 3.9 g/dL (3.2-5.0); Alkaline Phosphatase 166 U/L (45-117); Anion Gap 7 (5-15); BUN 15 mg/dL (7-18); BUN/Creat Ratio 12.6 RATIO (10-20); Calcium,Total 8.5 mg/dL (8.5-10.1); Chloride 107 mmol/L (98-107); Creatinine, Serum 1.19 mg/dL (0.70-1.30); EST Glomerular Filtration Rate 68 mL/min (>60); Est Glom Filt Rate - Afr Amer 82 mL/min (>60); Globulin 3.6 g/dL (2.2-4.2); Glucose 118 mg/dL (74-106); Potassium 3.9 mmol/L (3.5-5.1); Protein, Total 7.5 g/dL (6.4-8.2); Sodium Level 138 mmol/L (136-145)
== END | disposition home or self-care (01) ==
LOC: MTLAB 16:32
PROVIDERS: PCP Family Medicine; Referring Provider Internal Medicine Rheumatology; Visit Provider Internal Medicine Rheumatology
DX: L40.59 Other psoriatic arthropathy (principal); L40.8 Other psoriasis; Z79.899 Other long term (current) drug therapy
CPT/HCPCS: 36415; 80053; 85025

== ENCOUNTER → 2022-03-22 | Outpatient (CLI) | payer OTHER, SELFPAY ==
[2022-03-22 17:39] LABS: Absolute Lymphocyte Count 1.91 X10^3/uL (0.83-4.51); Absolute Neutrophil Count 4.5 X10^3/uL (2.0-7.7); Basophil# 0.09 X10^3/uL; Basophil% 1.3 % (0-1); Eosinophil# 0.09 X10^3/uL; Eosinophils% 1.3 % (0-5); Hematocrit 44.5 % (40-54); Hemoglobin 15.1 g/dL (13.0-16.5); Lymphocyte # 1.91 X10^3/ul (0.83-4.51); Lymphocyte % 26.8 % (19-41); Mean Corp Hgb Conc 33.9 g/dL (32-36); Mean Corpuscular Hgb 33.3 pg (27.0-32.0); Mean Platelet Vol. 9.5 fl (6.2-12.0); Monocyte# 0.57 X10^3/uL; NRBC Flagged by Analyzer 0 % (0-5); Neutrophil # 4.46 X10^3/uL (2.7-7.7); Neutrophil % 62.5 % (47-70); Platelet Count 295 K/mm3 (150-450); RBC Distribution Width CV 12.9 % (11.6-14.6); RBC Distribution Width SD 45.7 fl (35.1-43.9); Red Blood Count 4.54 M/mm3 (4.6-6.2); White Blood Count 7.1 K/mm3 (4.4-11.0)
[2022-03-22 18:38] LABS: ALB/GLOB Ratio 1.1 RATIO (0.9-2.4); AST(SGOT) 22 U/L (15-37); Alanine Aminotransfer ALT/SGPT 23 U/L (16-61); Albumin, Serum 3.6 g/dL (3.2-5.0); Alkaline Phosphatase 165 U/L (45-117); Anion Gap 6 (5-15); BUN 16 mg/dL (7-18); BUN/Creat Ratio 9.5 RATIO (10-20); Calcium,Total 8.2 mg/dL (8.5-10.1); Chloride 103 mmol/L (98-107); Creatinine, Serum 1.68 mg/dL (0.70-1.30); EST Glomerular Filtration Rate 46 mL/min (>60); Est Glom Filt Rate - Afr Amer 55 mL/min (>60); Globulin 3.4 g/dL (2.2-4.2); Glucose 93 mg/dL (74-106); Sodium Level 138 mmol/L (136-145)
== END | disposition home or self-care (01) ==
PROVIDERS: PCP Family Medicine; Referring Provider Internal Medicine Rheumatology; Visit Provider Internal Medicine Rheumatology
DX: L40.59 Other psoriatic arthropathy (principal); L40.8 Other psoriasis; Z79.899 Other long term (current) drug therapy
CPT/HCPCS: 36415; 80053; 85025

== ENCOUNTER → 2022-05-03 | Outpatient (CLI) | payer OTHER, SELFPAY ==
[2022-05-03 18:34] LABS: AST(SGOT) 15 U/L (15-37); Alanine Aminotransfer ALT/SGPT 18 U/L (16-61); Albumin, Serum 3.8 g/dL (3.2-5.0); Alkaline Phosphatase 164 U/L (45-117); Anion Gap 9 (5-15); BUN 13 mg/dL (7-18); BUN/Creat Ratio 11.7 RATIO (10-20); Calcium,Total 9.1 mg/dL (8.5-10.1); Chloride 102 mmol/L (98-107); Creatinine, Serum 1.11 mg/dL (0.70-1.30); EST Glomerular Filtration Rate 74 mL/min (>60); Est Glom Filt Rate - Afr Amer 89 mL/min (>60); Globulin 3.7 g/dL (2.2-4.2); Glucose 94 mg/dL (74-106); Potassium 3.8 mmol/L (3.5-5.1); Protein, Total 7.5 g/dL (6.4-8.2); Sodium Level 138 mmol/L (136-145)
== END | disposition home or self-care (01) ==
LOC: MTLAB 15:48
PROVIDERS: PCP Family Medicine; Referring Provider Internal Medicine Rheumatology; Visit Provider Internal Medicine Rheumatology
DX: L40.59 Other psoriatic arthropathy (principal); L40.8 Other psoriasis; F32.A Depression, unspecified; E78.5 Hyperlipidemia, unspecified; Z79.899 Other long term (current) drug therapy
CPT/HCPCS: 36415; 80053

== ENCOUNTER → 2022-08-17 | Outpatient (CLI) | payer OTHER, SELFPAY ==
[2022-08-17 17:45] LABS: Absolute Lymphocyte Count 1.88 X10^3/uL (0.83-4.51); Absolute Neutrophil Count 3.2 X10^3/uL (2.0-7.7); Basophil# 0.05 X10^3/uL; Basophil% 0.9 % (0-1); Eosinophil# 0.11 X10^3/uL; Eosinophils% 1.9 % (0-5); Hematocrit 42.9 % (40-54); Lymphocyte # 1.88 X10^3/ul (0.83-4.51); Lymphocyte % 32.5 % (19-41); Mean Corp Hgb Conc 32.6 g/dL (32-36); Mean Corpuscular Hgb 31.7 pg (27.0-32.0); Mean Corpuscular Volume 97.1 fL (80-94); Mean Platelet Vol. 9.7 fl (6.2-12.0); Monocyte# 0.52 X10^3/uL; NRBC Flagged by Analyzer 0 % (0-5); Neutrophil # 3.21 X10^3/uL (2.7-7.7); Neutrophil % 55.5 % (47-70); Platelet Count 276 K/mm3 (150-450); RBC Distribution Width CV 13.3 % (11.6-14.6); RBC Distribution Width SD 47.3 fl (35.1-43.9); Red Blood Count 4.42 M/mm3 (4.6-6.2); White Blood Count 5.8 K/mm3 (4.4-11.0)
[2022-08-17 18:23] LABS: AST(SGOT) 27 U/L (15-37); Alanine Aminotransfer ALT/SGPT 30 U/L (16-61); Albumin, Serum 3.6 g/dL (3.2-5.0); Alkaline Phosphatase 167 U/L (45-117); Anion Gap 5 (5-15); BUN 9 mg/dL (7-18); BUN/Creat Ratio 8.2 RATIO (10-20); Calcium,Total 8.6 mg/dL (8.5-10.1); Chloride 109 mmol/L (98-107); EST Glomerular Filtration Rate 74 mL/min (>60); Est Glom Filt Rate - Afr Amer 90 mL/min (>60); Globulin 3.5 g/dL (2.2-4.2); Glucose 100 mg/dL (74-106); Potassium 4.2 mmol/L (3.5-5.1); Protein, Total 7.1 g/dL (6.4-8.2); Sodium Level 139 mmol/L (136-145)
== END | disposition home or self-care (01) ==
LOC: MTLAB 15:47
PROVIDERS: PCP Family Medicine; Referring Provider Internal Medicine Rheumatology; Visit Provider Internal Medicine Rheumatology
DX: L40.59 Other psoriatic arthropathy (principal); Z79.899 Other long term (current) drug therapy
CPT/HCPCS: 36415; 80053; 85025

== ENCOUNTER → 2022-09-22 | Outpatient (CLI) | payer OTHER, SELFPAY ==
[2022-09-22 18:05] LABS: Cholesterol 253 mg/dL (200); High Density Lipoprotein 31 mg/dL; Triglycerides 309 mg/dL; Very Low Density Lipoprotein 62 mg/dL (5-40)
== END | disposition home or self-care (01) ==
LOC: MTLAB 16:08
PROVIDERS: PCP Family Medicine; Referring Provider Family Medicine; Visit Provider Family Medicine
DX: E78.5 Hyperlipidemia, unspecified (principal)
CPT/HCPCS: 36415; 80061

== ENCOUNTER → 2022-09-28 | Outpatient (CLI) | payer OTHER, SELFPAY ==
--- NOTE | 2022-09-28 09:37 | US_ITS ---
STUDY: THYROID ULTRASOUND REASON FOR EXAM: Male, 52 years old. THYROID NODULE TECHNIQUE: Ultrasound evaluation of the thyroid was performed with real-time and static aguilar-scale imaging. COMPARISON: Comparison is made with prior study dated September 14, 2021. FINDINGS: RIGHT LOBE: The right lobe of the thyroid gland is enlarged and measures 5.2 cm x 1.7 cm x 2 cm. There is a homogeneous echotexture. There is a 9 mm x 9 mm x 6 mm solid nodule in the mid inferior pole of the right lobe. This is essentially unchanged. LEFT LOBE: The left lobe of the thyroid gland measures 4.1 cm x 1.5 cm x 1.6 cm. There is a homogeneous echotexture. There are no demonstrated solid, cystic or complex lesions. ISTHMUS: The isthmus measures 3 mm. The regional lymph nodes are normal. US/Thyroid IMPRESSION: Mild enlargement of the right lobe of the thyroid with stable 9 mm x 9 mm x 6 mm solid nodule in the mid inferior pole of the right lobe of the thyroid gland. Electronically Signed: Marcos Driver MD at 10:17 EDT ,
== END | disposition home or self-care (01) ==
PROVIDERS: PCP Family Medicine; Referring Provider Family Medicine; Visit Provider Family Medicine
DX: E04.1 Nontoxic single thyroid nodule (principal)
CPT/HCPCS: 76536

== ENCOUNTER → 2022-11-10 | Outpatient (CLI) | payer OTHER, SELFPAY ==
[2022-11-10 18:07] LABS: Absolute Lymphocyte Count 1.99 X10^3/uL (0.83-4.51); Absolute Neutrophil Count 5.8 X10^3/uL (2.0-7.7); Basophil# 0.11 X10^3/uL; Basophil% 1.3 % (0-1); Eosinophil# 0.04 X10^3/uL; Eosinophils% 0.5 % (0-5); Hematocrit 46.9 % (40-54); Hemoglobin 15.2 g/dL (13.0-16.5); Lymphocyte # 1.99 X10^3/ul (0.83-4.51); Lymphocyte % 22.7 % (19-41); Mean Corp Hgb Conc 32.4 g/dL (32-36); Mean Corpuscular Hgb 31.6 pg (27.0-32.0); Mean Corpuscular Volume 97.5 fL (80-94); Mean Platelet Vol. 9.9 fl (6.2-12.0); Monocyte# 0.75 X10^3/uL; Monocyte% 8.6 % (0-10); NRBC Flagged by Analyzer 0 % (0-5); Neutrophil # 5.84 X10^3/uL (2.7-7.7); Neutrophil % 66.4 % (47-70); Platelet Count 321 K/mm3 (150-450); RBC Distribution Width CV 12.2 % (11.6-14.6); RBC Distribution Width SD 44.3 fl (35.1-43.9); Red Blood Count 4.81 M/mm3 (4.6-6.2); White Blood Count 8.8 K/mm3 (4.4-11.0)
[2022-11-10 18:20] LABS: AST(SGOT) 17 U/L (15-37); Alanine Aminotransfer ALT/SGPT 24 U/L (16-61); Albumin, Serum 3.7 g/dL (3.2-5.0); Alkaline Phosphatase 149 U/L (45-117); Anion Gap 5 (5-15); BUN 10 mg/dL (7-18); BUN/Creat Ratio 9.5 RATIO (10-20); Calcium,Total 8.9 mg/dL (8.5-10.1); Chloride 105 mmol/L (98-107); Creatinine, Serum 1.05 mg/dL (0.70-1.30); EST Glomerular Filtration Rate 78 mL/min (>60); Est Glom Filt Rate - Afr Amer 95 mL/min (>60); Globulin 3.8 g/dL (2.2-4.2); Glucose 92 mg/dL (74-106); Potassium 3.8 mmol/L (3.5-5.1); Protein, Total 7.5 g/dL (6.4-8.2); Sodium Level 138 mmol/L (136-145)
== END | disposition home or self-care (01) ==
PROVIDERS: PCP Family Medicine; Referring Provider Internal Medicine Rheumatology; Visit Provider Internal Medicine Rheumatology
DX: L40.59 Other psoriatic arthropathy (principal); L40.8 Other psoriasis; Z79.899 Other long term (current) drug therapy
CPT/HCPCS: 36415; 80053; 85025

== ENCOUNTER → 2023-02-02 | Outpatient (CLI) | payer OTHER, SELFPAY ==
[2023-02-02 17:47] LABS: Absolute Neutrophil Count 4.8 X10^3/uL (2.0-7.7); Basophil# 0.09 X10^3/uL; Basophil% 1.1 % (0-1); Eosinophil# 0.12 X10^3/uL; Eosinophils% 1.5 % (0-5); Hematocrit 45.7 % (40-54); Hemoglobin 14.9 g/dL (13.0-16.5); Lymphocyte % 32.2 % (19-41); Mean Corp Hgb Conc 32.6 g/dL (32-36); Mean Corpuscular Hgb 31.7 pg (27.0-32.0); Mean Corpuscular Volume 97.2 fL (80-94); Mean Platelet Vol. 9.3 fl (6.2-12.0); Monocyte# 0.48 X10^3/uL; Monocyte% 5.9 % (0-10); NRBC Flagged by Analyzer 0 % (0-5); Neutrophil # 4.75 X10^3/uL (2.7-7.7); Neutrophil % 58.9 % (47-70); Platelet Count 305 K/mm3 (150-450); RBC Distribution Width CV 12.7 % (11.6-14.6); RBC Distribution Width SD 45.3 fl (35.1-43.9); White Blood Count 8.1 K/mm3 (4.4-11.0)
[2023-02-02 18:42] LABS: ALB/GLOB Ratio 0.9 RATIO (0.9-2.4); AST(SGOT) 22 U/L (15-37); Alanine Aminotransfer ALT/SGPT 32 U/L (16-61); Albumin, Serum 3.7 g/dL (3.2-5.0); Alkaline Phosphatase 182 U/L (45-117); Anion Gap 7 (5-15); BUN 9 mg/dL (7-18); BUN/Creat Ratio 8.3 RATIO (10-20); Calcium,Total 8.6 mg/dL (8.5-10.1); Chloride 103 mmol/L (98-107); Creatinine, Serum 1.09 mg/dL (0.70-1.30); EST Glomerular Filtration Rate 75 mL/min (>60); Est Glom Filt Rate - Afr Amer 91 mL/min (>60); Globulin 3.9 g/dL (2.2-4.2); Glucose 89 mg/dL (74-106); Potassium 3.6 mmol/L (3.5-5.1); Protein, Total 7.6 g/dL (6.4-8.2); Sodium Level 138 mmol/L (136-145)
== END | disposition home or self-care (01) ==
LOC: MTLAB 16:21
PROVIDERS: PCP Family Medicine; Referring Provider Internal Medicine Rheumatology; Visit Provider Internal Medicine Rheumatology
DX: L40.59 Other psoriatic arthropathy (principal); L40.8 Other psoriasis; F32.A Depression, unspecified; E78.5 Hyperlipidemia, unspecified; Z79.899 Other long term (current) drug therapy
CPT/HCPCS: 36415; 80053; 85025

== ENCOUNTER → 2023-04-13 | Outpatient (CLI) | payer OTHER, SELFPAY ==
--- OUTSIDE RECORDS SUMMARY | 2023-04-13 16:55 | XMS RPT_ITS | CCD ---
Author Name Unknown Address [address] [place] [address] Organization [facility] Care Team Providers Care Prn Occupational Therapist Name Role Phone Gurvinder Navarro Primary Care Provider Vince Brown MD Primary Care Provider Vince Brown MD Primary Care Provider VINCE BROWN Primary Care Unavailable Allergies Allergy Classification Reported Allergen(s) Allergy Type Date of Onset Reaction(s) Facility (3 sources) Citalopram; Translations: [CITALOPRAM] Drug Allergy 01-22-2021 GI Upset [facility] Medications Current Medications Medication Drug Class(es) Dates Sig (Normalized) Sig (Original) citalopram 40 mg oral tablet (1 source) Serotonin Reuptake Inhibitor Start: 11-28-2018 take 1 tablet by mouth once daily citalopram (CELEXA) 40 MG tablet TAKE 1 TABLET BY MOUTH EVERY DAY 90 tablet 1 11/28/2018 Active doxycycline monohydrate 100 mg oral tablet (1 source) Tetracycline-clas s Drug Start: 09-12-2021 End: 09-19-2021 take 1 tablet by mouth twice daily doxycycline monohydrate 100 mg tablet Take 1 tablet by mouth twice daily for 7 days. 14 tablet 0 09/12/2021 09/19/2021 Active Completed/Discontinued Medications Medication Drug Class(es) Dates Sig (Normalized) Sig (Original) cetirizine hydrochloride 10 mg oral tablet (1 source) Histamine-1 Receptor Antagonist Start: 01-12-2023 take 1 tablet by mouth once daily cetirizine (ZYRTEC) 10 mg tablet Take 1 tablet by mouth once daily. 30 tablet 0 01/12/2023 Active Problems Active Problems Problem Classification Problem Date Documented Date Episodic/Chronic Anxiety disorders (2 sources) Mixed anxiety and depressive disorder; Translations: [Other specified anxiety disorders] Onset: 07-23-2020 07-23-2020 Chronic Disorders of lipid metabolism (2 sources) Hyperlipidemia; Translations: [Hyperlipidemia, unspecified hyperlipidemia type] Onset: 11-16-2017 11-16-2017 Chronic Esophageal disorders (1 source) Gastroesophageal reflux disease; Translations: [Gastroesophageal reflux disease] Onset: 08-05-2015 08-05-2015 Chronic Joint disorders and dislocations; trauma-related (2 sources) Traumatic arthropathy; Translations: [Traumatic arthropathy, unspecified site] Onset: 07-09-2013 07-09-2013 Chronic Mood disorders (1 source) Depressive disorder; Translations: [Depression (emotion)] Onset: 08-05-2015 08-05-2015 Chronic Other ear and sense organ disorders (1 source) Otalgia, left ear; Translations: [Otalgia, unspecified] 01-12-2023 Episodic Other inflammatory condition of skin (1 source) Psoriasis; Translations: [Psoriasis] Onset: 11-16-2017 11-16-2017 Chronic Other inflammatory condition of skin (3 sources) Psoriatic arthritis; Translations: [Arthropathic psoriasis, unspecified] Onset: 11-16-2017 11-16-2017 Chronic Other lower respiratory disease (1 source) Cough; Translations: [Cough] Episodic Past or Other Problems Problem Classification Problem Date Documented Date Episodic/Chronic Fracture of upper limb (2 sources) Closed fracture dislocation of proximal interphalangeal joint of digit of hand; Translations: [Fracture of unspecified phalanx of unspecified finger, initial encounter for closed fracture] Onset: 07-09-2013 07-09-2013 Episodic Results Test Name Value Interpretation Reference Range Facil ity Vital Signs Date Time Vital Sign Value Performing Clinician Umang lopez 01-12-2023 16:11-0400 Body temperature 97.11 [degF] Yasmin Fisher APRN.CNP Work Phone: [facility] 01-12-2023 16:11-0400 Body weight 77.56 kg Yasmin Fisher APRN.CNP Work Phone: [facility] 01-12-2023 16:11-0400 Diastolic blood pressure 94 mm[Hg] Yasmin Fisher APRN.CNP Work Phone: [facility] 01-12-2023 16:11-0400 Heart rate 65 /min Yasmin Fisher INFRASTRUCTURE CONSULTANT.HR ADMINISTRATIVE ASSISTANT Work Phone: [facility] 01-12-2023 16:11-0400 Respiratory rate 21 /min Yasmin Fisher INFRASTRUCTURE CONSULTANT.HR ADMINISTRATIVE ASSISTANT Work Phone: [facility] 01-12-2023 16:11-0400 SaO2% (BldA) [Mass fraction] 98 % Yasmin Fisher INFRASTRUCTURE CONSULTANT.HR ADMINISTRATIVE ASSISTANT Work Phone: [facility] 01-12-2023 16:11-0400 Systolic blood pressure 122 mm[Hg] Yasmin Fisher INFRASTRUCTURE CONSULTANT.HR ADMINISTRATIVE ASSISTANT Work Phone: [facility] 09-12-2021 12:41-0400 Body temperature 97 [degF] Denisse Reynolds APRN.HR ADMINISTRATIVE ASSISTANT Work Phone: [facility] 09-12-2021 12:41-0400 Body weight 78.11 kg Denisse Reynolds APRN.HR ADMINISTRATIVE ASSISTANT Work Phone: [facility] 09-12-2021 12:41-0400 Diastolic blood pressure 98 mm[Hg] Denisse Reynolds APRN.HR ADMINISTRATIVE ASSISTANT Work Phone: [facility] 09-12-2021 12:41-0400 Heart rate 58 /min Denisse Reynolds APRN.HR ADMINISTRATIVE ASSISTANT Work Phone: [facility] 09-12-2021 12:41-0400 Respiratory rate 19 /min Denisse Reynolds APRN.HR ADMINISTRATIVE ASSISTANT Work Phone: [facility] 09-12-2021 12:41-0400 SaO2% (BldA) [Mass fraction] 98 % Denisse Reynolds APRN.HR ADMINISTRATIVE ASSISTANT Work Phone: [facility] 09-12-2021 12:41-0400 Systolic blood pressure 140 mm[Hg] Denisse Reynolds APRN.HR ADMINISTRATIVE ASSISTANT Work Phone: [facility] Encounters Encounter Date Encounter Type Care Provider Facility Start: 01-12-2023 End: 01-12-2023 [facility] Facility:[facility] Start: 01-12-2023 End: 01-12-2023 Patient encounter procedure Yasmin Fisher APRN.MELISA Work Phone: [facility] Procedures Date Procedure Procedure Detail Performing Clinician Start: 06-03-2020 Lipid 1996 panel - S gabriela or Plasma Yasmin iFsher APRN.HR ADMINISTRATIVE ASSISTANT Work Phone: Start: 12-09-2018 Lipid panel Gurvinder Lupe Navarro Work Phone: Start: 12-09-2018 Transferase alanine amino alt sgpt Gurvinder Navraro Work Phone: Start: 12-09-2018 Transferase aspartat e amino ast sgot Gurvinder Navarro Work Phone: Plan of Treatment Date Care Activity Detail Author Start: 06-03-2025 Lipid 1996 panel - S gabriela or Plasma Lipid Screening [facility] Start: 06-03-2025 LIPID SCREEN LIPID SCREEN [facility] Start: 11-15-2023 Lipid screen Lipid screen [facility] [place], [place] Start: 06-04-2023 DIABETES SCREEN DIABETES SCREEN [facility] Start: 06-04-2023 Diabetes Screening Diabetes Screenin g [facility] Start: 12-03-2022 Covid-19 Vaccine ( season) Covid-19 Vaccine ( season) [facility] Start: 12-03-2022 Influenza vaccination Influenza Vacc ine (#1) [facility] Start: 12-03-2021 Influenza vaccination INFLUENZ A (Season Ended) [facility] Start: 07-14-2021 COVID-19 VACCINE (4 - Booster for Pfizer series) COVID-19 VACCINE (4 - Booster for Pfizer series) [facility] Start: 06-16-2021 COLORECTAL CANCER SCREENING COLORECTAL CANCER SCREENING [facility] Start: 06-16-2021 FECAL OCCULT BLOOD FECAL OCCULT BLOO D [facility] Start: 11-15-2019 DTaP/Tdap/Td vaccine (1 - Tdap) DTaP/Tdap/Td vaccine (1 - Tdap) [facility] [place] Immunizations Immunization Date Immunization Notes Care Provider Ori zepeda 07-16-2020 COVID-19 vaccine, ag e 12+ yr (PFIZER-BIONTECH - PURPLE TOP) Denisse Rodolfo URENA.HR ADMINISTRATIVE ASSISTANT Work Phone: [facility] 06-23-2020 COVID-19 vaccine, ag e 12+ yr (PFIZER-BIONTECH - PURPLE TOP) Denisse Rodolfo URENA.HR ADMINISTRATIVE ASSISTANT Work Phone: [facility] Payers Date Payer Category Payer Unknown MMO MMO [employer] [id number] 2017-Present [phone] [address] [address] [place] [address] Indemnity [id number] 2017 Unknown MMO MMO [employer] [id number] 2017-Present [phone] [address] [place] [address] Indemnity [id number] 2017 Unknown [id number] 2015 Unknown [facility] xxxxxxxxxxxx 2015-Present [phone] [address] [address] [place] [address] xxxxxxxxxxxx [id number] Social History Date Type Detail Facility Start: 11-14-2018 End: 01-12-2023 Tobacco smoking status NHIS Never smoker [facility] End: 04-04-2012 History of tobacco use Chews Tobacco [place], [place] Start: 11-14-2018 End: 03-12-2020 Alcohol intake Yes [facility] Start: 11-14-2018 History SDOH Alcohol Frequency 3 [place], [place] Start: 11-14-2018 History SDOH Alcohol Std Drinks 2 [place] Start: 11-14-2018 History SDOH Alcohol Binge 1 [place] Start: 11-14-2018 History SDOH Physica l Activity DPW 0 [place], [place] Start: 1970 Sex Assigned At Not on file M [place], [place] End: 04-04-2012 History of tobacco use Snuff User [facility] Start: 09-12-2021 End: 01-12-2023 Alcohol intake Current drinker of alcohol (finding) [facility] Start: 04-17-2013 History SDOH Alcohol Comment occasionally [facility] Start: 01-12-2023 Tobacco use and exposure User of smokeless tobacco [facility] Start: 03-12-2020 End: 01-12-2023 History of Social function [facility] Adult Depression Screening Assessment 0 [facility] Goals Date Patient Goal Desired Activity /State Progress note 01-12-2023 Note Date & Type Note Facility 01-12-2023 Note HNO ID: [id number] Author: Yasmin Fisher APRN.HR ADMINISTRATIVE ASSISTANT Service: ? Author Type: Nurse Practitioner Type: Progress Notes Filed: 01/12/2023 4:23 PM Note Text: Subjective The history is provided by the patient. No carpet or rug layer helper was used. JOS Pritchard is a 52 year old male who presents today for CC of left ear pain for a week. He denies any trauma, injury, wax build up or uri symptoms. He has not used any medications or treatment. No hisotry of allergies. He has not used any medications or treatment . BP 122/94 Pulse 65 Temp 36.2 ?C (97.1 ?F) Resp 21 Wt 77.6 kg (171 lb) SpO2 98% BMI 26.78 kg/m? Social History Tobacco Use Smoking status: Never Smokeless tobacco: Current Types: Snuff, Chew Last attempt to quit: 04/04/2012 Substance Use Topics Alcohol use: Yes Comment: occasionally Drug use: No PAST MEDICAL HISTORY Diagnosis Date Arthritis I have confirmed and edited as necessary, the [facility] Review of Systems Constitutional: Negative for chills and fever. HENT: Negative for congestion, ear pain (left), sinus pain and sore throat. Respiratory: Negative for cough, sputum production, shortness of breath and wheezing. Cardiovascular: Negative for chest pain. Musculoskeletal: Negative for myalgias. Neurological: Negative for headaches. Objective Physical Exam Vitals and nursing note reviewed. Constitutional: Appearance: He is not toxic-appearing. HENT: Head: Normocephalic and atraumatic. Right Ear: Tympanic membrane, ear canal and external ear normal. Left Ear: Ear canal and external ear normal. A middle ear effusion is present. Tympanic membrane is bulging (mild). Tympanic membrane is not injected or erythematous. Nose: No mucosal edema, congestion or rhinorrhea. Right Sinus: No maxillary sinus tenderness or frontal sinus tenderness. Left Sinus: No maxillary sinus tenderness or frontal sinus tenderness. Mouth/Throat: Pharynx: Uvula midline. No oropharyngeal exudate or posterior oropharyngeal erythema. Tonsils: No tonsillar abscesses. Cardiovascular: Rate and Rhythm: Normal rate and regular rhythm. Heart sounds: Normal heart sounds. Pulmonary: Effort: Pulmonary effort is normal. Breath sounds: Normal breath sounds. No decreased breath sounds, wheezing, rhonchi or rales. Lymphadenopathy: Head: Right side of head: No submental, submandibular, tonsillar or preauricular adenopathy. Left side of head: No submental, submandibular, tonsillar or preauricular adenopathy. Cervical: No cervical adenopathy. Right cervical: No superficial cervical adenopathy. Left cervical: No superficial cervical adenopathy. Neurological: Mental Status: He is alert. ASSESSMENT/PLAN: 1. Ear pain, left - ICD9: 388.70, ICD10: H92.02 Mild ear effusion, eustachian tube dysfunciton Zyrtec 10 mg By mouth daily at bedtime Flonase or Nasonex 2 sprays in each nostril once a day If no improvement to follow up with ENT Diagnosis and treatment plan were discussed and questions were answered to the patient's satisfaction. Pt acknowledged understanding of concepts and follow up plan. Specific signs and symptoms that would indicate the need for higher level of care were discussed in detail warranting prompt ER evaluation. Yasmin Fisher APRN.MELISA [facility] Instructions 01-12-2023 Patient Instructions Note Date & Type Note [facility] 01-12-2023 Instructions Yasmin Fisher APRN.MELISA - 01/12/2023 4:21 PM EDT Zyrtec 10 mg By mouth daily at bedtime Flonase or Nasonex 2 sprays in each nostril once a day If no improvement over the next week would recommend you follow up with ENT for further evaluation and treatment . documented in this encounter [facility] History of Present illness Narrative 01-12-2023 Yasmin Fisher APRN.MELISA - 01/12/2023 4:17 PM EDT Note Date & Type Note Facility 01-12-2023 History of Presen t illness Narrative Subjective The history is provided by the patient. No carpet or rug layer helper was used. HPI Francheska is a 52 year old male who presents today for CC of left ear pain for a week. He denies any trauma, injury, wax build up or uri symptoms. He has not used any medications or treatment. No hisotry of allergies. He has not used any medications or treatment . BP 122/94 Pulse 65 Temp 36.2 C (97.1 F) Resp 21 Wt 77.6 kg (171 lb) SpO2 98% BMI 26.78 kg/m Social History Tobacco Use Smoking status: Never Smokeless tobacco: Current Types: Snuff, Chew Last attempt to quit: 04/04/2012 Substance Use Topics Alcohol use: Yes Comment: occasionally Drug use: No PAST MEDICAL HISTORY Diagnosis Date Arthritis I have confirmed and edited as necessary, the [facility] Review of Systems Constitutional: Negative for chills and fever. HENT: Negative for congestion, ear pain (left), sinus pain and sore throat. Respiratory: Negative for cough, sputum production, shortness of breath and wheezing. Cardiovascular: Negative for chest pain. Musculoskeletal: Negative for myalgias. Neurological: Negative for headaches. Objective Physical Exam Vitals and nursing note reviewed. Constitutional: Appearance: He is not toxic-appearing. HENT: Head: Normocephalic and atraumatic. Right Ear: Tympanic membrane, ear canal and external ear normal. Left Ear: Ear canal and external ear normal. A middle ear effusion is present. Tympanic membrane is bulging (mild). Tympanic membrane is not injected or erythematous. Nose: No mucosal edema, congestion or rhinorrhea. Right Sinus: No maxillary sinus tenderness or frontal sinus tenderness. Left Sinus: No maxillary sinus tenderness or frontal sinus tenderness. Mouth/Throat: Pharynx: Uvula midline. No oropharyngeal exudate or posterior oropharyngeal erythema. Tonsils: No tonsillar abscesses. Cardiovascular: Rate and Rhythm: Normal rate and regular rhythm. Heart sounds: Normal heart sounds. Pulmonary: Effort: Pulmonary effort is normal. Breath sounds: Normal breath sounds. No decreased breath sounds, wheezing, rhonchi or rales. Lymphadenopathy: Head: Right side of head: No submental, submandibular, tonsillar or preauricular adenopathy. Left side of head: No submental, submandibular, tonsillar or preauricular adenopathy. Cervical: No cervical adenopathy. Right cervical: No superficial cervical adenopathy. Left cervical: No superficial cervical adenopathy. Neurological: Mental Status: He is alert. ASSESSMENT/PLAN: 1. Ear pain, left - ICD9: 388.70, ICD10: H92.02 Mild ear effusion, eustachian tube dysfunciton Zyrtec 10 mg By mouth daily at bedtime Flonase or Nasonex 2 sprays in each nostril once a day If no improvement to follow up with ENT Diagnosis and treatment plan were discussed and questions were answered to the patient's satisfaction. Pt acknowledged understanding of concepts and follow up plan. Specific signs and symptoms that would indicate the need for higher level of care were discussed in detail warranting prompt ER evaluation. Yasmin Fisher APRN.HR ADMINISTRATIVE ASSISTANT documented in this encounter [facility] History of Present illness Narrative 09-12-2021 Denisse Reynolds APRN.CNP - 09/12/2021 12:58 PM EDT Note Date & Type Note Facility 09-12-2021 History of Presen t illness Narrative CC: Patient presents with: Chest Congestion: 3 or 4 weeks HPI: Francheska is a 51 year old male who presents to the office with complaint of chest congestion, head congestion, cough, nonproductive and sinus symptoms for 3 weeks. Symptoms are staying the same. Associated symptoms includes cough. Denies nausea, vomiting and diarrhea fever. Treatments tried include nothing so far. with no relief of symptoms. Sick contacts: unknown. History of asthma, frequent episodes of bronchitis, chronic bronchitis, bronchiectasis or COPD: No Smoker: No Seasonal/environmental allergies: No The ROS is otherwise negative. The patient's pmh, medications, allergies, and past visits are reviewed. PHYSICAL EXAM: BP 140/98 Pulse (!) 58 Temp 36.1 C (97 F) Resp 19 Wt 78.1 kg (172 lb 3.2 oz) SpO2 98% BMI 26.97 kg/m General appearance: alert, cooperative, pleasant, in no acute distress Head: Normocephalic Eyes: EOM's intact, conjunctiva pink and moist, no icterus, sclera white, non-injected Oropharynx:moist without lesions, No erythema, exudates or tonsillar hypertrophy. Heart: Negative. RRR without obvious murmur, gallop, or rubs. No ectopy. Lungs: clear to auscultation, without rales or wheeze, good air exchange PAST MEDICAL HISTORY Diagnosis Date Arthritis PAST SURGICAL HISTORY Procedure Laterality Date PAST SURGICAL HISTORY OF bi-lat knee arthroscopy ALLERGIES Celexa [Citalopram] MEDICATIONS famotidine (PEPCID) 20 mg tablet Take 1 tablet by mouth once daily. rosuvastatin (CRESTOR) 10 mg tablet Take 1 tablet by mouth once daily. methotrexate 2.5 mg tablet Take 6 pills one day per week cyclobenzaprine (FLEXERIL) 10 mg tablet Take 0.5-1 tablets by mouth three times daily as needed for Muscle Spasm. folic acid 1 mg tablet Take 1 tablet by mouth once daily. doxycycline monohydrate 100 mg tablet Take 1 tablet by mouth twice daily for 7 days. FAMILY HISTORY Problem Relation Age of Onset Colon Cancer Mother Heart Paternal Grandmother Heart Paternal Grandfather Social History Tobacco Use Smoking status: Never Smoker Smokeless tobacco: Current User Types: Snuff, Chew Substance Use Topics Alcohol use: Yes Comment: occasionally Drug use: No ASSESSMENT/PLAN: 1. Cough - ICD9: 786.2, ICD10: R05.9 doxycycline bid for 7 days Prescription instructions reviewed with patient as applicable. Potential red flag symptoms discussed with the patient. Reviewed appropriate action plan to take if red flag symptoms occur. Patient agreeable to treatment plan. Denisse Reynolds APRN.MELISA documented in this encounter [facility] History of Past illness Narrative 06-09-2020 Note Date & Type Note Facility documented as of this encounter (statuses as of 09/12/2021) [facility] History of Past illness Narrative 06-09-2020 Note Date & Type Note Facility documented as of this encounter (statuses as of 01/13/2023) [facility] Evaluation note Note Date & Type Note Facility documented in this encounter [facility] Evaluation note Note Date & Type Note Facility documented in this encounter [facility] Assessments Diagnosis Hyperlipidemia, unspecified hyperlipidemia type Advance Directives No Advanced Directives Records FoundDocuments on File Type Date Recorded Patient Shoe Turner Expl anation Advance Directives and Living Will Power of Customer Complaint Clerk Summary Purpose Family History No Family History Records FoundNo Family History Records Found Additional Source Comments (unrecognized sect ion and content) No Status Records FoundNo Status Records Found INFORMATION SOURCE (unrecogn ized section and content) DATE CREATED AUTHOR AUTHOR'S ORGANIZ ATION 01/14/2023 [facility] Source Comments (unrecognize d section and content) In the event this informatio n is protected by the Federal Confidentiality of Alcohol and Drug Abuse Patient Records regulations: The Federal rules restrict any use of the information to criminally investigate or prosecute any alcohol or drug abuse patient.[facility] the event this information is protected by the Federal Confidentiality of Alcohol and Drug Abuse Patient Records regulations: The Federal rules restrict any use of the information to criminally investigate or prosecute any alcohol or drug abuse patient.[facility] Reason for Visit (unrecogniz ed section and content) Reason Comments Ear Pain Left ear pain x 1 we ek Care Teams (unrecognized sec tion and content) Prn Occupational Therapist Relationship Specialty Start Date End Date Vince Brown MD [address] [place] [address] PCP - General Family Medicine 06/02/20 FOR RECORDS PERTAINING TO PATIENTS WHO ARE OR HAVE BEEN ENROLLED IN A CHEMICAL DEPENDENCY/SUBSTANCEABUSE PROGRAM, SOME INFORMATION MAY BE OMITTED. This clinical summary was aggregated from multiple sources. Caution should be exercised in using it in the provision of clinical care. This summary normalizes information from multiple sources, and as a consequence, information in this document may materially change the coding, format and clinical context of patient data. In addition, data may be omitted in some cases. CLINICAL DECISIONS SHOULD BE BASED ON THE PRIMARY CLINICAL RECORDS. [employer] provides no warranty or guarantee of the accuracy or completeness of information in this document.
[2023-04-13 17:42] LABS: Absolute Lymphocyte Count 2.68 X10^3/uL (0.83-4.51); Absolute Neutrophil Count 4.1 X10^3/uL (2.0-7.7); Basophil# 0.08 X10^3/uL; Basophil% 1.1 % (0-1); Eosinophil# 0.11 X10^3/uL; Eosinophils% 1.5 % (0-5); Hematocrit 45.8 % (40-54); Lymphocyte # 2.68 X10^3/ul (0.83-4.51); Lymphocyte % 35.9 % (19-41); Mean Corp Hgb Conc 32.8 g/dL (32-36); Mean Corpuscular Hgb 31.4 pg (27.0-32.0); Mean Platelet Vol. 9.5 fl (6.2-12.0); Monocyte# 0.45 X10^3/uL; NRBC Flagged by Analyzer 0 % (0-5); Neutrophil # 4.14 X10^3/uL (2.7-7.7); Neutrophil % 55.4 % (47-70); Platelet Count 319 K/mm3 (150-450); RBC Distribution Width CV 12.2 % (11.6-14.6); RBC Distribution Width SD 42.9 fl (35.1-43.9); Red Blood Count 4.77 M/mm3 (4.6-6.2); White Blood Count 7.5 K/mm3 (4.4-11.0)
[2023-04-13 18:39] LABS: ALB/GLOB Ratio 1.1 RATIO (0.9-2.4); AST(SGOT) 21 U/L (15-37); Alanine Aminotransfer ALT/SGPT 22 U/L (16-61); Albumin, Serum 3.8 g/dL (3.2-5.0); Alkaline Phosphatase 177 U/L (45-117); Anion Gap 7 (5-15); BUN 11 mg/dL (7-18); BUN/Creat Ratio 10.7 RATIO (10-20); Calcium,Total 8.4 mg/dL (8.5-10.1); Chloride 107 mmol/L (98-107); Cholesterol 291 mg/dL (200); Creatinine, Serum 1.03 mg/dL (0.70-1.30); EST Glomerular Filtration Rate 80 mL/min (>60); Est Glom Filt Rate - Afr Amer 97 mL/min (>60); Globulin 3.6 g/dL (2.2-4.2); Glucose 93 mg/dL (74-106); High Density Lipoprotein 30 mg/dL; Potassium 3.6 mmol/L (3.5-5.1); Protein, Total 7.4 g/dL (6.4-8.2); Sodium Level 139 mmol/L (136-145); Thyroid Stim Hormone (TSH) 3.04 uIU/mL (0.358-3.74); Triglycerides 492 mg/dL
== END | disposition home or self-care (01) ==
LOC: MFPLAB 16:46
PROVIDERS: PCP Family Medicine; Visit Provider Family Medicine
DX: E78.5 Hyperlipidemia, unspecified (principal)
CPT/HCPCS: 36415; 80053; 80061; 84443; 85025

== ENCOUNTER → 2023-05-02 | Outpatient (CLI) | payer OTHER, SELFPAY ==
--- OUTSIDE RECORDS SUMMARY | 2023-05-02 16:17 | XMS RPT_ITS | CCD ---
Author Name Unknown Address [address] [place] [address] Organization [facility] Care Team Providers Care Digital Media Buyer Name Role Phone Gurvinder Navarro Primary Care Provider Vince Brown MD Primary Care Provider Vince Brown MD Primary Care Provider VINCE BROWN Primary Care Unavailable Allergies Allergy Classification Reported Allergen(s) Allergy Type Date of Onset Reaction(s) Facility (3 sources) Citalopram; Translations: [CITALOPRAM] Drug Allergy 01-22-2021 GI Upset [facility] Medications Current Medications Medication Drug [...] 97.11 [degF] Yasmin Fisher APRN.CNP Work Phone: [facility] 01-12-2023 16:11-0400 Body weight 77.56 kg Yasmin Fisher APRN.CNP Work Phone: [facility] 01-12-2023 16:11-0400 Diastolic blood pressure 94 mm[Hg] Yasmin Fisher APRN.CNP Work Phone: [facility] 01-12-2023 16:11-0400 Heart rate 65 /min Yasmin Fisher CASE PACKER.ACCOUNTS PAYABLE ACCOUNTANT Work Phone: [facility] 01-12-2023 16:11-0400 Respiratory rate 21 /min Yasmin Fisher CASE PACKER.ACCOUNTS PAYABLE ACCOUNTANT Work Phone: [facility] 01-12-2023 16:11-0400 SaO2% (BldA) [Mass fraction] 98 % Yasmin Fisher CASE PACKER.ACCOUNTS PAYABLE ACCOUNTANT Work Phone: [facility] 01-12-2023 16:11-0400 Systolic blood pressure 122 mm[Hg] Yasmin Fisher CASE PACKER.ACCOUNTS PAYABLE ACCOUNTANT Work Phone: [facility] 09-12-2021 12:41-0400 Body temperature 97 [degF] Denisse Reynolds APRN.ACCOUNTS PAYABLE ACCOUNTANT Work Phone: [facility] 09-12-2021 12:41-0400 Body weight 78.11 kg Denisse Reynolds APRN.ACCOUNTS PAYABLE ACCOUNTANT Work Phone: [facility] 09-12-2021 12:41-0400 Diastolic blood pressure 98 mm[Hg] Denisse Reynolds APRN.ACCOUNTS PAYABLE ACCOUNTANT Work Phone: [facility] 09-12-2021 12:41-0400 Heart rate 58 /min Denisse Reynolds APRN.ACCOUNTS PAYABLE ACCOUNTANT Work Phone: [facility] 09-12-2021 12:41-0400 Respiratory rate 19 /min Denisse Reynolds APRN.ACCOUNTS PAYABLE ACCOUNTANT Work Phone: [facility] 09-12-2021 12:41-0400 SaO2% (BldA) [Mass fraction] 98 % Denisse Reynolds APRN.ACCOUNTS PAYABLE ACCOUNTANT Work Phone: [facility] 09-12-2021 12:41-0400 Systolic blood pressure 140 mm[Hg] Denisse Reynolds APRN.ACCOUNTS PAYABLE ACCOUNTANT Work Phone: [facility] Encounters Encounter Date Encounter Type Care Provider Facility Start: 01-12-2023 End: 01-12-2023 [facility] Facility:[facility] Start: 01-12-2023 End: 01-12-2023 Patient encounter procedure Yasmin Fisher APRN.MELISA Work Phone: [facility] Procedures Date Procedure Procedure Detail Performing Clinician Start: 06-03-2020 Lipid 1996 panel - S gabriela or Plasma Yasmin Fisher APRN.ACCOUNTS PAYABLE ACCOUNTANT Work Phone: Start: 12-09-2018 Lipid panel Gurvinder Lupe Navarro Work Phone: Start: 12-09-2018 Transferase alanine amino alt sgpt Gurvinder Navarro Work Phone: Start: 12-09-2018 Transferase aspartat e amino ast sgot Gurvinder Navarro Work Phone: Plan of Treatment Date Care Activity Detail Author Start: 06-03-2025 Lipid 1996 panel - S gabriela or Plasma Lipid Screening [facility] Start: 06-03-2025 LIPID SCREEN LIPID SCREEN [facility] Start: 11-15-2023 Lipid screen Lipid screen [facility] [place], [place] Start: 06-04-2023 DIABETES SCREEN DIABETES SCREEN [facility] Start: 06-04-2023 Diabetes Screening Diabetes Screenin g [facility] Start: 12-03-2022 Covid-19 Vaccine ( season) Covid-19 Vaccine ( season) [facility] Start: 12-03-2022 Influenza vaccination Influenza Vacc ine (#1) [facility] Start: 12-03-2021 Influenza vaccination INFLUENZ A (Season Ended) [facility] Start: 07-14-2021 COVID-19 VACCINE (4 - Booster for Pfizer series) COVID-19 VACCINE (4 - Booster for Pfizer series) [facility] Start: 06-16-2021 COLORECTAL CANCER SCREENING COLORECTAL CANCER SCREENING [facility] Start: 06-16-2021 FECAL OCCULT BLOOD FECAL OCCULT BLOO D [facility] Start: 11-15-2019 DTaP/Tdap/Td vaccine (1 - Tdap) DTaP/Tdap/Td vaccine (1 - Tdap) [facility] [place] Immunizations Immunization Date Immunization Notes Care Provider Ori zepeda 07-16-2020 COVID-19 vaccine, ag e 12+ yr (PFIZER-BIONTECH - PURPLE TOP) Denisse Rodolfo URENA.ACCOUNTS PAYABLE ACCOUNTANT Work Phone: [facility] 06-23-2020 COVID-19 vaccine, ag e 12+ yr (PFIZER-BIONTECH - PURPLE TOP) Denisse Rodolfo URENA.ACCOUNTS PAYABLE ACCOUNTANT Work Phone: [facility] Payers Date Payer Category Payer Unknown MMO MMO MHS xxxx [id number] 2017-Present [phone] [address] [address] [place] [address] Indemnity [id number] 2017 Unknown MMO MMO [employer]HS xxxx [id number] 2017-Present [phone] [address] [place] [address] Indemnity [id number] 2017 Unknown [id number] 2015 Unknown [facility] xxxxxxxxxxxx 2015-Present [phone] [address] [address] [place] [address] xxxxxxxxxxxx [id number] Social History Date Type Detail Facility Start: 11-14-2018 End: 01-12-2023 Tobacco smoking status NHIS Never smoker [facility] End: 04-04-2012 History of tobacco use Chews Tobacco [place], [place] Start: 11-14-2018 End: 03-12-2020 Alcohol intake Yes [facility] Start: 11-14-2018 History SDOH Alcohol Frequency 3 [place], [place] Start: 11-14-2018 History SDOH Alcohol Std Drinks 2 [place] Start: 11-14-2018 History SDOH Alcohol Binge 1 [place] Start: 11-14-2018 History SDOH Physica l Activity DPW 0 [place], [place] Start: 1970 Sex Assigned At Not on file M [place], [place] End: 04-04-2012 History of tobacco use Snuff User [facility] Start: 09-12-2021 End: 01-12-2023 Alcohol intake Current drinker of alcohol (finding) [facility] Start: 04-17-2013 History SDOH Alcohol Comment occasionally [facility] Start: 01-12-2023 Tobacco use and exposure User of smokeless tobacco [facility] Start: 03-12-2020 End: 01-12-2023 History of Social function [facility] Adult Depression Screening Assessment 0 [facility] Goals Date Patient Goal Desired Activity /State Progress note 01-12-2023 Note Date & Type Note Facility 01-12-2023 Note HNO ID: [id number] Author: Yasmin Fisher APRN.ACCOUNTS PAYABLE ACCOUNTANT Service: ? Author Type: Nurse Practitioner Type: Progress Notes Filed: 01/12/2023 4:23 PM Note Text: Subjective The history is provided by the patient. No club licensee was used. JOS Pritchard is a 52 [...] warranting prompt ER evaluation. Yasmin Fisher APRN.MELISA [facility] Instructions 01-12-2023 Patient Instructions Note Date & Type Note [facility] 01-12-2023 Instructions Yasmin Fisher APRN.MELISA - 01/12/2023 4:21 PM EDT Zyrtec 10 mg By mouth daily at bedtime Flonase or Nasonex 2 sprays in each nostril once a day If no improvement over the next week would recommend you follow up with ENT for further evaluation and treatment . documented in this encounter [facility] History of Present illness Narrative 01-12-2023 Yasmin Fisher APRN.MELISA - 01/12/2023 4:17 PM EDT Note Date & Type Note Facility 01-12-2023 History of Presen t illness Narrative Subjective The history is provided by the patient. No club licensee was used. HPI Francheska is a 52 [...] detail warranting prompt ER evaluation. Yasmin Fisher APRN.ACCOUNTS PAYABLE ACCOUNTANT documented in this encounter [facility] History of Present illness Narrative [...] Denisse Reynolds APRN.MELISA documented in this encounter [facility] History of Past illness Narrative 06-09-2020 Note Date & Type Note Facility documented as of this encounter (statuses as of 09/12/2021) [facility] History of Past illness Narrative 06-09-2020 Note Date & Type Note Facility documented as of this encounter (statuses as of 01/13/2023) [facility] Evaluation note Note Date & Type Note Facility documented in this encounter [facility] Evaluation note Note Date & Type Note Facility documented in this encounter [facility] Assessments Diagnosis Hyperlipidemia, unspecified hyperlipidemia type Advance Directives No Advanced Directives Records FoundDocuments on File Type Date Recorded 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 Software 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 Advance Directives and Living Will Power of Obiee Report Developer Summary Purpose Family History No Family History Records FoundNo Family History Records Found Additional Source Comments (unrecognized sect ion and content) No Status Records FoundNo Status Records Found INFORMATION SOURCE (unrecogn ized section and content) DATE CREATED AUTHOR AUTHOR'S ORGANIZ ATION 01/14/2023 [facility] Source Comments (unrecognize d section and content) In the event this informatio n is protected by the Federal Confidentiality of Alcohol and Drug Abuse Patient Records regulations: The Federal rules restrict any use of the information to criminally investigate or prosecute any alcohol or drug abuse patient[facility] the event this information is protected by the Federal Confidentiality of Alcohol and Drug Abuse Patient Records regulations: The Federal rules restrict any use of the information to criminally investigate or prosecute any alcohol or drug abuse patient.[facility] Reason for Visit (unrecogniz ed section and content) Reason Comments Ear Pain Left ear pain x 1 we ek Care Teams (unrecognized sec tion and content) Digital Media Buyer Relationship Specialty Start Date End Date Vince Brown MD [address] [place] [address] PCP - General Family Medicine 06/02/20 FOR [...] BE BASED ON THE PRIMARY CLINICAL RECORDS. [employer] provides no warranty or guarantee of the accuracy or completeness of information in this document.
[2023-05-02 17:36] LABS: Absolute Lymphocyte Count 2.35 X10^3/uL (0.83-4.51); Basophil# 0.09 X10^3/uL; Basophil% 1.2 % (0-1); Eosinophil# 0.14 X10^3/uL; Eosinophils% 1.9 % (0-5); Hematocrit 43.6 % (40-54); Hemoglobin 14.1 g/dL (13.0-16.5); Lymphocyte # 2.35 X10^3/ul (0.83-4.51); Lymphocyte % 32.5 % (19-41); Mean Corp Hgb Conc 32.3 g/dL (32-36); Mean Corpuscular Hgb 31.1 pg (27.0-32.0); Mean Platelet Vol. 9.3 fl (6.2-12.0); Monocyte# 0.65 X10^3/uL; NRBC Flagged by Analyzer 0 % (0-5); Neutrophil # 3.97 X10^3/uL (2.7-7.7); Neutrophil % 55.1 % (47-70); Platelet Count 305 K/mm3 (150-450); RBC Distribution Width CV 12.7 % (11.6-14.6); Red Blood Count 4.54 M/mm3 (4.6-6.2); White Blood Count 7.2 K/mm3 (4.4-11.0)
[2023-05-02 18:27] LABS: ALB/GLOB Ratio 1.1 RATIO (0.9-2.4); AST(SGOT) 23 U/L (15-37); Alanine Aminotransfer ALT/SGPT 22 U/L (16-61); Albumin, Serum 3.8 g/dL (3.2-5.0); Alkaline Phosphatase 184 U/L (45-117); Anion Gap 6 (5-15); BUN 9 mg/dL (7-18); BUN/Creat Ratio 8.3 RATIO (10-20); Calcium,Total 8.8 mg/dL (8.5-10.1); Chloride 104 mmol/L (98-107); Creatinine, Serum 1.09 mg/dL (0.70-1.30); EST Glomerular Filtration Rate 75 mL/min (>60); Est Glom Filt Rate - Afr Amer 91 mL/min (>60); Globulin 3.6 g/dL (2.2-4.2); Glucose 87 mg/dL (74-106); Potassium 3.4 mmol/L (3.5-5.1); Protein, Total 7.4 g/dL (6.4-8.2); Sodium Level 136 mmol/L (136-145)
== END | disposition home or self-care (01) ==
PROVIDERS: PCP Family Medicine; Referring Provider Internal Medicine Rheumatology; Visit Provider Internal Medicine Rheumatology
DX: L40.59 Other psoriatic arthropathy (principal); L40.8 Other psoriasis; F32.A Depression, unspecified; E78.5 Hyperlipidemia, unspecified; Z79.899 Other long term (current) drug therapy
CPT/HCPCS: 36415; 80053; 85025

== ENCOUNTER 2023-05-06 19:30 | Emergency (ER) | payer OTHER, SELFPAY ==
[2023-05-06 19:31] VITALS: BP 152/97; PULSE 66; RESP 12; TEMP 36.3; O2SAT 95; BMI 26.8
[2023-05-06] MEDS: Aspirin 81 MG TAB.CHEW 324 MG PO (19:57)
--- NOTE | 2023-05-06 20:00 | RAD_ITS ---
INDICATION: chest pain EXAMINATION/TECHNIQUE: X-RAY - XR Chest 1 View COMPARISON: No relevant prior comparison study available FINDINGS: LINES/DEVICES: None. LUNGS: No consolidation, edema or effusion. No pneumothorax. MEDIASTINUM AND CARDIOVASCULAR STRUCTURES: Cardiac silhouette not enlarged. Central airways and mediastinal contour are unremarkable. BONES AND SOFT TISSUES: Unremarkable. RAD/Chest 1 View (Portable) IMPRESSION: No radiographic evidence of acute cardiopulmonary disease. Electronically Signed: Silas Mendenhall MD at 20:13 EST ,
--- OUTSIDE RECORDS SUMMARY | 2023-05-06 20:00 | XMS RPT_ITS | CCD ---
Author Name Unknown Address [address] [place] [address] Organization [facility] Care Team Providers Care Launch Operator Name Role Phone Gurvinder Navarro Primary Care Provider Vince Brown MD Primary Care Provider [phone] Vince Brown MD Primary Care Provider VINCE BROWN Primary Care Unavailable Allergies Allergy Classification Reported Allergen(s) Allergy Type Date of Onset Reaction(s) Facility (3 sources) Citalopram; Translations: [CITALOPRAM] Drug Allergy 01-22-2021 GI Upset [facility] Medications Current Medications Medication Drug Class(es) Dates [...] 97.11 [degF] Yasmin Fisher APRN.CNP Work Phone: [facility] 01-12-2023 16:11-0400 Body weight 77.56 kg Yasmin Fisher APRN.CNP Work Phone: [facility] 01-12-2023 16:11-0400 Diastolic blood pressure 94 mm[Hg] Yasmin Fisher APRN.CNP Work Phone: [facility] 01-12-2023 16:11-0400 Heart rate 65 /min Yasmin Fisher PRIVATE SECRETARY.REED PRESS FEEDER Work Phone: [facility] 01-12-2023 16:11-0400 Respiratory rate 21 /min Yasmin Fisher PRIVATE SECRETARY.REED PRESS FEEDER Work Phone: [facility] 01-12-2023 16:11-0400 SaO2% (BldA) [Mass fraction] 98 % Yasmin Fisher PRIVATE SECRETARY.REED PRESS FEEDER Work Phone: [facility] 01-12-2023 16:11-0400 Systolic blood pressure 122 mm[Hg] Yasmin Fisher PRIVATE SECRETARY.REED PRESS FEEDER Work Phone: [facility] 09-12-2021 12:41-0400 Body temperature 97 [degF] Denisse Reynolds APRN.REED PRESS FEEDER Work Phone: [facility] 09-12-2021 12:41-0400 Body weight 78.11 kg Denisse Reynolds APRN.REED PRESS FEEDER Work Phone: [facility] 09-12-2021 12:41-0400 Diastolic blood pressure 98 mm[Hg] Denisse Reynolds APRN.REED PRESS FEEDER Work Phone: [facility] 09-12-2021 12:41-0400 Heart rate 58 /min Denisse Reynolds APRN.REED PRESS FEEDER Work Phone: [facility] 09-12-2021 12:41-0400 Respiratory rate 19 /min Denisse Reynolds APRN.REED PRESS FEEDER Work Phone: [facility] 09-12-2021 12:41-0400 SaO2% (BldA) [Mass fraction] 98 % Denisse Reynolds APRN.REED PRESS FEEDER Work Phone: [facility] 09-12-2021 12:41-0400 Systolic blood pressure 140 mm[Hg] Denisse Reynolds APRN.REED PRESS FEEDER Work Phone: [facility] Encounters Encounter Date Encounter Type Care Provider Facility Start: 01-12-2023 End: 01-12-2023 [facility] Facility:[facility] Start: 01-12-2023 End: 01-12-2023 Patient encounter procedure Yasmin Fisher APRN.MELISA Work Phone: [facility] Procedures Date Procedure Procedure Detail Performing Clinician Start: 06-03-2020 Lipid 1996 panel - S gabriela or Plasma Yasmin Fisher APRN.REED PRESS FEEDER Work Phone: Start: 12-09-2018 Lipid panel Gurvinder Lupe Navarro Work Phone: Start: 12-09-2018 Transferase alanine amino alt sgpt Gurvinder Navarro Work Phone: Start: 12-09-2018 Transferase aspartat e amino ast sgot Gurvinder Navarro Work Phone: Plan of Treatment Date Care Activity Detail Author Start: 06-03-2025 Lipid 1996 panel - S gabriela or Plasma Lipid Screening [facility] Start: 06-03-2025 LIPID SCREEN LIPID SCREEN [facility] Start: 11-15-2023 Lipid screen Lipid screen [facility] [place], [place] Start: 06-04-2023 DIABETES SCREEN DIABETES SCREEN [facility] Start: 06-04-2023 Diabetes Screening Diabetes Screenin g [facility] Start: 12-03-2022 Covid-19 Vaccine ( season) Covid-19 Vaccine ( season) [facility] Start: 12-03-2022 Influenza vaccination Influenza Vacc ine (#1) [facility] Start: 12-03-2021 Influenza vaccination INFLUENZ A (Season Ended) [facility] Start: 07-14-2021 COVID-19 VACCINE (4 - Booster for Pfizer series) COVID-19 VACCINE (4 - Booster for Pfizer series) [facility] Start: 06-16-2021 COLORECTAL CANCER SCREENING COLORECTAL CANCER SCREENING [facility] Start: 06-16-2021 FECAL OCCULT BLOOD FECAL OCCULT BLOO D [facility] Start: 11-15-2019 DTaP/Tdap/Td vaccine (1 - Tdap) DTaP/Tdap/Td vaccine (1 - Tdap) [facility], [place] Immunizations Immunization Date Immunization Notes Care Provider Ori zepeda 07-16-2020 COVID-19 vaccine, ag e 12+ yr (PFIZER-BIONTECH - PURPLE TOP) Denisse Rodolfo URENA.REED PRESS FEEDER Work Phone: [facility] 06-23-2020 COVID-19 vaccine, ag e 12+ yr (PFIZER-BIONTECH - PURPLE TOP) Denisse Rodolfo URENA.REED PRESS FEEDER Work Phone: [facility] Payers Date Payer Category Payer Unknown MMO MMO MHS xxxx [id number] 2017-Present [phone] [address] [address] [place] [address] Indemnity [id number] 2017 Unknown MMO MMO [employer]HS xxxx [id number] 2017-Present [phone] [address] [place] [address] Indemnity [id number] 2017 Unknown [id number] 2015 Unknown [facility] xxxxxxxxxxxx 2015-Present [phone] [address] [address] [place] [address] xxxxxxxxxxxx [id number] Social History Date Type Detail Facility Start: 11-14-2018 End: 01-12-2023 Tobacco smoking status NHIS Never smoker [facility] End: 04-04-2012 History of tobacco use Chews Tobacco [place], [place] Start: 11-14-2018 End: 03-12-2020 Alcohol intake Yes [facility] Start: 11-14-2018 History SDOH Alcohol Frequency 3 [place], [place] Start: 11-14-2018 History SDOH Alcohol Std Drinks 2 [place], [place] Start: 11-14-2018 History SDOH Alcohol Binge 1 [place], [place] Start: 11-14-2018 History SDOH Physica l Activity DPW 0 [place], [place] Start: 1970 Sex Assigned At Not on file M [place], [place] End: 04-04-2012 History of tobacco use Snuff User [facility] Start: 09-12-2021 End: 01-12-2023 Alcohol intake Current drinker of alcohol (finding) [facility] Start: 04-17-2013 History SDOH Alcohol Comment occasionally [facility] Start: 01-12-2023 Tobacco use and exposure User of smokeless tobacco [facility] Start: 03-12-2020 End: 01-12-2023 History of Social function [facility] Adult Depression Screening Assessment 0 [facility] Goals Date Patient Goal Desired Activity /State Progress note 01-12-2023 Note Date & Type Note Facility 01-12-2023 Note HNO ID: [id number] Author: Yasmin Fisher APRN.REED PRESS FEEDER Service: ? Author Type: Nurse Practitioner Type: Progress Notes Filed: 01/12/2023 4:23 PM Note Text: Subjective The history is provided by the patient. No candy rolling machine operator was used. JOS Pritchard is a 52 [...] have confirmed and edited as necessary, the [facility] Review of Systems Constitutional: Negative for [...] warranting prompt ER evaluation. Yasmin Fisher APRN.MELISA [facility] Instructions 01-12-2023 Patient Instructions Note Date & Type Note [facility] 01-12-2023 Instructions Yasmin Fisher APRN.MELISA - 01/12/2023 4:21 PM EDT Zyrtec 10 mg By mouth daily at bedtime Flonase or Nasonex 2 sprays in each nostril once a day If no improvement over the next week would recommend you follow up with ENT for further evaluation and treatment . documented in this encounter [facility] History of Present illness Narrative 01-12-2023 Yasmin Fisher APRN.MELISA - 01/12/2023 4:17 PM EDT Note Date & Type Note Facility 01-12-2023 History of Presen t illness Narrative Subjective The history is provided by the patient. No candy rolling machine operator was used. HPI Francheska is a 52 [...] have confirmed and edited as necessary, the [facility] Review of Systems Constitutional: Negative for [...] detail warranting prompt ER evaluation. Yasmin Fisher APRN.REED PRESS FEEDER documented in this encounter [facility] History of Present illness Narrative 09-12-2021 Denisse [...] Denisse Reynolds APRN.MELISA documented in this encounter [facility] History of Past illness Narrative 06-09-2020 Note Date & Type Note Facility documented as of this encounter (statuses as of 09/12/2021) [facility] History of Past illness Narrative 06-09-2020 Note Date & Type Note Facility documented as of this encounter (statuses as of 01/13/2023) [facility] Evaluation note Note Date & Type Note Facility documented in this encounter [facility] Evaluation note Note Date & Type Note Facility documented in this encounter [facility] Assessments Diagnosis Hyperlipidemia, unspecified hyperlipidemia type Advance Directives No Advanced Directives Records FoundDocuments on File Type Date Recorded 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 Advance Directives and Living Will Power of Electronic Bench Technician Summary Purpose Family History No Family History Records FoundNo Family History Records Found Additional Source Comments (unrecognized sect ion and content) No Status Records FoundNo Status Records Found INFORMATION SOURCE (unrecogn ized section and content) DATE CREATED AUTHOR AUTHOR'S ORGANIZ ATION 01/14/2023 [facility] Source Comments (unrecognize d section and content) In the event this informatio n is protected by the Federal Confidentiality of Alcohol and Drug Abuse Patient Records regulations: The Federal rules restrict any use of the information to criminally investigate or prosecute any alcohol or drug abuse patient.[facility] the event this information is protected by the Federal Confidentiality of Alcohol and Drug Abuse Patient Records regulations: The Federal rules restrict any use of the information to criminally investigate or prosecute any alcohol or drug abuse patient.[facility] Reason for Visit (unrecogniz ed section and content) Reason Comments Ear Pain Left ear pain x 1 we ek Care Teams (unrecognized sec tion and content) Launch Operator Relationship Specialty Start Date End Date Vince Brown MD [address] [place] [address] PCP - General Family Medicine 06/02/20 FOR [...] BE BASED ON THE PRIMARY CLINICAL RECORDS. [employer] provides no warranty or guarantee of the accuracy or completeness of information in this document.
[2023-05-06 20:03] LABS: Absolute Lymphocyte Count 2.31 X10^3/uL (0.83-4.51); Absolute Neutrophil Count 5.2 X10^3/uL (2.0-7.7); Basophil# 0.09 X10^3/uL; Basophil% 1.1 % (0-1); Eosinophil# 0.12 X10^3/uL; Eosinophils% 1.4 % (0-5); Hematocrit 44.7 % (40-54); Hemoglobin 15.1 g/dL (13.0-16.5); Lymphocyte # 2.31 X10^3/ul (0.83-4.51); Lymphocyte % 27.7 % (19-41); Mean Corp Hgb Conc 33.8 g/dL (32-36); Mean Corpuscular Hgb 31.5 pg (27.0-32.0); Mean Corpuscular Volume 93.3 fL (80-94); Mean Platelet Vol. 9.6 fl (6.2-12.0); Monocyte# 0.66 X10^3/uL; Monocyte% 7.9 % (0-10); NRBC Flagged by Analyzer 0 % (0-5); Neutrophil # 5.15 X10^3/uL (2.7-7.7); Neutrophil % 61.7 % (47-70); Platelet Count 315 K/mm3 (150-450); RBC Distribution Width CV 12.6 % (11.6-14.6); RBC Distribution Width SD 43.2 fl (35.1-43.9); Red Blood Count 4.79 M/mm3 (4.6-6.2); White Blood Count 8.4 K/mm3 (4.4-11.0)
[2023-05-06 20:18] LABS: Anion Gap 3 (5-15); BUN 11 mg/dL (7-18); BUN/Creat Ratio 9.8 RATIO (10-20); Calcium,Total 8.6 mg/dL (8.5-10.1); Chloride 110 mmol/L (98-107); Creatinine, Serum 1.12 mg/dL (0.70-1.30); EST Glomerular Filtration Rate 73 mL/min (>60); Est Glom Filt Rate - Afr Amer 88 mL/min (>60); Estimated Creatinine Clearance 72.95 ml/min; Glucose 121 mg/dL (74-106); Potassium 3.5 mmol/L (3.5-5.1); Sodium Level 140 mmol/L (136-145); Troponin-I HS (w/2H Reflex) 5 pg/mL (3.0-78.0)
--- NOTE | 2023-05-06 20:42 | EDS_ITS ---
HPI <Laura Kaiser RN - Last Filed: 05/06/23 22:51> History of Present Illness Chief Complaint: Chest Pain Informant: patient and family Onset/Context/Timing Onset: Days (2 days prior to arrival) Activity at onset: sudden Timing: Continuous and Intermittent Quality: Positive for Pressure Location: Left Chest Current Severity: Mild Maximum Severity: Mild Worsened By: Nothing Relieved By: Nothing Associated Symptoms: Negative for Nausea, Vomiting, Diaphoresis, Dyspnea, Cough, Lightheadedness or Palpitations Narrative Narrative: Patient is a 53-year-old male presenting to the ED with his sister for left- sided chest pressure radiating to left shoulder with occasionally tingling. Patient reports pain began 2 days ago was intermittent until this morning in which it became constant. Pain occurred at rest. Patient denies exacerbations. Has not taken anything for the pain. Patient denies shortness of breath, weakness, dizziness. Denies recent travel. Past medical history significant for GERD and hypercholesterolemia. Patient reports prior chewing tobacco use in which he quit 2 years ago. Prior Similar Symptoms: No Recent Illness/Hospitalization: No CVD Risk Factors: Positive for Hypercholesterolemia, Family History 1' </=55 and - PE Risk Factors: Negative for Recent Travel/Surgery, Prior DVT or PE or Cancer PFSH <Laura Kaiser RN - Last Filed: 05/06/23 22:51> [facility] Medical History Arthritis Back pain Depression Former smoker Gastric reflux High cholesterol History of irregular heartbeat History of pain when walking Psoriatic arthritis Wears glasses Home Medications methotrexate sodium 2.5 mg tablet 17.5 mg PO Q7D 02/29/16 [History Last Taken 12/25/17] rosuvastatin 10 mg tablet 20 mg PO QHS 07/24/18 [History Last Taken Unknown] acetaminophen 325 mg capsule (Tylenol) 325 mg PO ONCE PRN Pain 12/01/20 [History Last Taken Unknown] folic acid 1 mg tablet 1 mg PO DAILY 12/25/21 [History Last Taken Unknown] omeprazole 20 mg capsule,delayed release 20 mg PO DAILY 12/25/21 [History Last Taken Unknown] Allergy/AdvReac Type Severity Reaction Status Date / Time No Known Allergies Allergy Verified 12/29/21 07:27 Family History Other Arthritis Heart disease Surgical History H/O knee surgery Hx of vasectomy Social History household members: none housing: house Smoking Status: Former smoker Tobacco: How many years used: 38 Smokeless tobacco user: snuff alcohol intake: current alcohol intake frequency: 0-2 drinks per day what type of physical activity do you participate in: none do you feel safe at home: Yes ROS <Dr. Angely Zavaleta MD - Last Filed: 05/06/23 22:56> ROS ED Constitutional Constitutional ED: Denies chills or fever(s) Eyes Eyes: Denies change in vision or discharge from eye(s) ENT ENT ED: Denies discharge from eye(s), rhinorrhea or sore throat Cardiovascular Cardiovascular: Reports chest pain; Denies palpitations or racing heartbeat Respiratory/Chest Respiratory/Chest: Denies cough or dyspnea Gastrointestinal Gastrointestinal: Denies abdominal pain, diarrhea, nausea or vomiting Genitourinary Genitourinary ED: Denies dysuria Musculoskeletal Musculoskeletal: Denies back pain or extremity pain Integumentary Denies Abrasions or rash Neurologic Neurologic: Denies headache(s) or weakness Psychiatric Psychiatric: Denies anxiety or depression Allergic/Immunologic Allergic/Immunologic ED: Denies lip swelling or urticaria EXAM <Laura Kaiser RN - Last Filed: 05/06/23 22:51> Physical Exam Const Vital Signs: 05/06/23 19:31 05/06/23 21:00 05/06/23 22:00 Temperature 97.4 F L Temperature Source Temporal Pulse Rate 66 53 L 51 L Respiratory Rate 12 14 12 Blood Pressure 152/97 H 132/89 H 130/90 H Blood Pressure Mean 115 103 103 Pulse Ox 95 98 Oxygen Delivery Method Room Air Positive well nourished and well developed General Appearance ED: well developed and NAD HEENT Reports moist mucous membranes normocephalic Eyes PERRL Chest Wall inspection of chest normal and palpation of chest normal Resp normal respiratory effort and clear to auscultation bilaterally Effort and Inspection: Negative for respiratory distress Cardio regular rate, regular rhythm, S1 normal heart sound, S2 normal heart sound and no murmurs Peripheral Pulses: pulses 2+ throughout GI normal to inspection, nondistended, normoactive bowel sounds, soft to palpation and non-tender Extremity normal to inspection General Extremety ED: Negative for edema General Extremity: Negative for edema Neuro oriented x3 Sensorium / Orientation: awake Motor Exam: strength 5/5 throughout Psych mental status grossly normal Skin no rashes or lesions noted <Dr. Angely Zavaleta MD - Last Filed: 05/06/23 22:56> Physical Exam Const Vital Signs: 05/06/23 19:31 05/06/23 21:00 05/06/23 22:00 Temperature 97.4 F L Temperature Source Temporal Pulse Rate 66 53 L 51 L Respiratory Rate 12 14 12 Blood Pressure 152/97 H 132/89 H 130/90 H Blood Pressure Mean 115 103 103 Pulse Ox 95 98 Oxygen Delivery Method Room Air <Laura Kaiser RN - Last Filed: 05/06/23 22:51> Heart Score History: Moderately Suspicious ECG: Normal Age: >45 - <65 years Risk Factors: 1 or 2 Risk Factors Troponin: </= Normal Limit Score: 3 <Dr. Angely Zavaleta MD - Last Filed: 05/06/23 22:56> Heart Score Score: 3 MDM <Laura Kaiser RN - Last Filed: 05/06/23 22:51> MDM MDM Narrative Medical decision making narrative: Patient placed on property assessment monitor. IV line initiated. Lab work obtained to evaluate for leukocytosis, anemia, electrolyte derangement, and cardiac injury. EKG ordered to evaluate for cardiac arrhythmia/ischemia. Chest x-ray obtained to evaluate for acute lung pathology, cardiac size, or mediastinal abnormality. Aspirin ordered due to concern for ACS. History & Record Review Discussion w/independent historian: Patient and Family Lab Data Attestation: I reviewed the patient's lab results. Labs: Laboratory Results - last 24 hr 05/06/23 05/06/23 19:35 22:06 WBC 8.4 RBC 4.79 Hgb 15.1 Hct 44.7 MCV 93.3 MCH 31.5 MCHC 33.8 RDW Std Deviation 43.2 RDW Coeff of Brenda 12.6 Plt Count 315 MPV 9.6 Immature Gran % (Auto) 0.200 Neut % (Auto) 61.7 Lymph % (Auto) 27.7 [place] % (Auto) 7.9 Eos % (Auto) 1.4 Baso % (Auto) 1.1 H Absolute Neuts (auto) 5.2 Absolute Lymphs (auto) 2.31 Nucleated RBC % 0 Sodium 140 Potassium 3.5 Chloride 110 H Carbon Dioxide 27.0 Anion Gap 3 L BUN 11 Creatinine 1.12 Estim Creat Clear Calc 72.95 Est GFR (MDRD) Af Amer 88 Est GFR (MDRD) Non-Af 73 BUN/Creatinine Ratio 9.8 L Glucose 121 H Calcium 8.6 Troponin I High Sens 5 5 Radiography Chest X-Ray - ED: 1 View and Read by Radiologist Diagnostic Testing: Clinical Impression(s) from Imaging Studies Chest X-Ray 05/06/23 20:00 IMPRESSION: No radiographic evidence of acute cardiopulmonary disease. Electronically Signed: Silas Mendenhall MD at 20:13 EST , EKG Initial EKG: Interpretation: Sinus Rhythm and No Acute Injury Pattern Prior EKG tracings: not available for review Differential Diagnosis Chest pain/SOB: pulmonary embolism, ACS and aortic dissection Abdominal Pain: Cholecystitis Management Discussion w/another healthcare provider: Other (Dr. Zavaleta, ED Provider) Treatment and Re-Evaluation :: CBC showed a normal white count of 8.4 hemoglobin 15.1 platelets 315. Chemistry indicated slightly elevated chloride at 110, glucose elevated at 121. Troponin was negative at 5 with repeat 2-hour troponin remaining at 5. Portable chest x- ray was negative for acute cardiopulmonary disease. Patient was given aspirin 324 mg p.o. Lab and imaging results shared with patient and family member. Patient reports desire to go home. Updated Dr. Mcgrath who is on-call for Dr. Conrad. Patient will follow-up with Dr. Puri's office soon as possible. Patient instructed to return to ED for worsening symptoms or worsening pain. <Dr. Angely Zavaleta MD - Last Filed: 05/06/23 22:56> [facility] Lab Data Labs: Laboratory Results - last 24 hr 05/06/23 05/06/23 19:35 22:06 WBC 8.4 RBC 4.79 Hgb 15.1 Hct 44.7 MCV 93.3 MCH 31.5 MCHC 33.8 RDW Std Deviation 43.2 RDW Coeff of Brenda 12.6 Plt Count 315 MPV 9.6 Immature Gran % (Auto) 0.200 Neut % (Auto) 61.7 Lymph % (Auto) 27.7 [place] % (Auto) 7.9 Eos % (Auto) 1.4 Baso % (Auto) 1.1 H Absolute Neuts (auto) 5.2 Absolute Lymphs (auto) 2.31 Nucleated RBC % 0 Sodium 140 Potassium 3.5 Chloride 110 H Carbon Dioxide 27.0 Anion Gap 3 L BUN 11 Creatinine 1.12 Estim Creat Clear Calc 72.95 Est GFR (MDRD) Af Amer 88 Est GFR (MDRD) Non-Af 73 BUN/Creatinine Ratio 9.8 L Glucose 121 H Calcium 8.6 Troponin I High Sens 5 5 Radiography Diagnostic Testing: Clinical Impression(s) from Imaging Studies Chest X-Ray 05/06/23 20:00 IMPRESSION: No radiographic evidence of acute cardiopulmonary disease. Electronically Signed: Silas Mendenhall MD at 20:13 EST , EKG Initial EKG: Comments: Sinus at 62 with no acute ischemia. Treatment and Re-Evaluation :: CBC showed a normal white count of 8.4 hemoglobin 15.1 platelets 315. Chemistry indicated slightly elevated chloride at 110, glucose elevated at 121. Troponin was negative at 5 with repeat 2-hour troponin remaining at 5. Portable chest x- ray was negative for acute cardiopulmonary disease. Patient was given aspirin 324 mg p.o. Lab and imaging results shared with patient and family member. Patient reports desire to go home. Updated Dr. Mcgrath who is on-call for Dr. Conrad. Patient will follow-up with Dr. Conrad's office soon as possible. Patient instructed to return to ED for worsening symptoms or worsening pain. Patient seen and evaluated with SEBASTIAN student. I personally interviewed and examined the patient. I was involved in all aspects of patient's orders, interpretation of results, and treatment. Patient presents secondary to chest pain. He reports a chest pressure which he ranks a 2 out of 10 this been intermittent for the past 2 days but constant since he was at work this morning. He denies shortness of breath. He states activity and rest do not change his pain. He does have a history of high cholesterol and family history of heart disease. He has never had a stress test or cardiac cath. Patient sitting upright in bed no acute distress. Head and neck examination unremarkable. Heart is regular rate and rhythm. Lung sounds are clear. Abdomen is soft and nontender. Extremity examination reveals no calf tenderness or edema. EKG is sinus rhythm with no evidence of acute ischemia. Portable chest x-ray per my interpretation reveals chronic changes with no focal infiltrate. CBC was normal white count 8.4 with a hemoglobin of 15.1. Chemistry studies unremarkable. Initial troponin is 5 with a 2-hour repeat troponin of 5. Patient's heart score is 3. He would prefer discharge to home and close follow- up. I did speak with Dr. Ashish Mcgrath, on-call for Dr. Conrad, patient's PCP. They will follow the patient up closely next week. Patient was given strict instructions to return this weekend should his symptoms worsen in any way. He voices understanding and agreement. Discharge Plan Triage Chief Complaint: Chest Pain ED Provider: Angely Zavaleta Dx/Rx/DC Orders Clinical Impression: Chest pain Instructions: ED Chest Pain, Uncertain Cause Prescriptions: No Action acetaminophen [Tylenol] 325 mg capsule 325 mg PO ONCE PRN (Reason: Pain) methotrexate sodium 2.5 MG tablet 17.5 mg PO Q7D rosuvastatin 10 MG tablet 20 mg PO QHS omeprazole 20 mg capsule,delayed release(DR/EC) 20 mg PO DAILY Patient Comments: take 1 capsule by mouth once daily 30-45 MINUTES before breakfast folic acid 1 mg tablet 1 mg PO DAILY Patient Comments: take 1 tablet by mouth once daily Primary Care Provider: Adria Conrad Referrals: Adria Conrad MD [Primary Care Provider] - As soon as possible Activity Restrictions/Additional Instructions: Return to ED for worsened pain/symptoms. Follow-up with Dr Houston VALLECILLO. Disposition Disposition: Home, Self Care
[2023-05-06 21:00] VITALS: BP 132/89; PULSE 53; RESP 14
[2023-05-06 22:00] VITALS: BP 130/90; PULSE 51; RESP 12; O2SAT 98
[2023-05-06 22:00] LABS: Reflex Troponin-HS? (from REC) Y
[2023-05-06 22:30] LABS: Troponin-I HS 5 pg/mL (3.0-78.0)
[2023-05-06 22:58] VITALS: BP 149/98; PULSE 52; RESP 12
== END 2023-05-06 22:59 | disposition home or self-care (01) ==
PROVIDERS: Emergency Provider Emergency Medicine; PCP Family Medicine; Visit Provider Emergency Medicine
DX: R07.9 Chest pain, unspecified (principal); E78.00 Pure hypercholesterolemia, unspecified; K21.9 Gastro-esophageal reflux disease without esophagitis; Z87.891 Personal history of nicotine dependence; Z79.899 Other long term (current) drug therapy
CPT/HCPCS: 71045; 80048; 84484; 85025; 93005; 99284; A4216

== ENCOUNTER → 2023-05-11 | Outpatient (CLI) | payer OTHER, SELFPAY ==
--- OUTSIDE RECORDS SUMMARY | 2023-05-11 08:51 | XMS RPT_ITS | CCD ---
Author Name Unknown Address [address] [place] [address] Organization [facility] Care Team Providers Care Air Lift Operator Name Role Phone Gurvinder Navarro Primary Care Provider Vince Brown MD Primary Care Provider Vince Brown MD Primary Care Provider VINCE BROWN Primary Care Unavailable Allergies Allergy Classification Reported Allergen(s) Allergy Type Date of Onset Reaction(s) Facility (3 sources) Citalopram; Translations: [CITALOPRAM] Drug Allergy 01-22-2021 GI Upset [facility] Medications Current Medications Medication Drug Class(es) Dates [...] 97.11 [degF] Yasmin Fisher APRN.CNP Work Phone: [facility] 01-12-2023 16:11-0400 Body weight 77.56 kg Yasmin Fisher APRN.CNP Work Phone: [facility] 01-12-2023 16:11-0400 Diastolic blood pressure 94 mm[Hg] Yasmin Fisher APRN.CNP Work Phone: [facility] 01-12-2023 16:11-0400 Heart rate 65 /min Yasmin Fisher OVEREDGE SEWER.COMMUNICATIONS ADMINISTRATOR Work Phone: [facility] 01-12-2023 16:11-0400 Respiratory rate 21 /min Yasmin Fisher OVEREDGE SEWER.COMMUNICATIONS ADMINISTRATOR Work Phone: [facility] 01-12-2023 16:11-0400 SaO2% (BldA) [Mass fraction] 98 % Yasmin Fisher OVEREDGE SEWER.COMMUNICATIONS ADMINISTRATOR Work Phone: [facility] 01-12-2023 16:11-0400 Systolic blood pressure 122 mm[Hg] Yasmin Fisher OVEREDGE SEWER.COMMUNICATIONS ADMINISTRATOR Work Phone: [facility] 09-12-2021 12:41-0400 Body temperature 97 [degF] Denisse Reynolds APRN.COMMUNICATIONS ADMINISTRATOR Work Phone: [facility] 09-12-2021 12:41-0400 Body weight 78.11 kg Denisse Reynolds APRN.COMMUNICATIONS ADMINISTRATOR Work Phone: [facility] 09-12-2021 12:41-0400 Diastolic blood pressure 98 mm[Hg] Denisse Reynolds APRN.COMMUNICATIONS ADMINISTRATOR Work Phone: [facility] 09-12-2021 12:41-0400 Heart rate 58 /min Denisse Reynolds APRN.COMMUNICATIONS ADMINISTRATOR Work Phone: [facility] 09-12-2021 12:41-0400 Respiratory rate 19 /min Denisse Reynolds APRN.COMMUNICATIONS ADMINISTRATOR Work Phone: [facility] 09-12-2021 12:41-0400 SaO2% (BldA) [Mass fraction] 98 % Denisse Reynolds APRN.COMMUNICATIONS ADMINISTRATOR Work Phone: [facility] 09-12-2021 12:41-0400 Systolic blood pressure 140 mm[Hg] Denisse Reynolds APRN.COMMUNICATIONS ADMINISTRATOR Work Phone: [facility] Encounters Encounter Date Encounter Type Care Provider Facility Start: 01-12-2023 End: 01-12-[address] [facility] Facility:[facility] Start: 01-12-2023 End: 01-12-2023 Patient encounter procedure Yasmin Fisher APRN.MELISA Work Phone: [facility] Procedures Date Procedure Procedure Detail Performing Clinician Start: 06-03-2020 Lipid 1996 panel - S gabriela or Plasma Yasmin Fisher APRN.COMMUNICATIONS ADMINISTRATOR Work Phone: Start: 12-09-2018 Lipid panel Gurvinder Lupe Navarro Work Phone: Start: 12-09-2018 Transferase alanine amino alt sgpt Gurvinder Navarro Work Phone: Start: 12-09-2018 Transferase aspartat e amino ast sgot Gurvinder Navarro Work Phone: Plan of Treatment Date Care Activity Detail Author Start: 06-03-2025 Lipid 1996 panel - S gabriela or Plasma Lipid Screening [facility] Start: 06-03-2025 LIPID SCREEN LIPID SCREEN [facility] Start: 11-15-2023 Lipid screen Lipid screen [facility] [place], [place] Start: 06-04-2023 DIABETES SCREEN DIABETES SCREEN [facility] Start: 06-04-2023 Diabetes Screening Diabetes Screenin g [facility] Start: 12-03-2022 Covid-19 Vaccine ( season) Covid-19 Vaccine ( season) [facility] Start: 12-03-2022 Influenza vaccination Influenza Vacc ine (#1) [facility] Start: 12-03-2021 Influenza vaccination INFLUENZ A (Season Ended) [facility] Start: 07-14-2021 COVID-19 VACCINE (4 - Booster for Pfizer series) COVID-19 VACCINE (4 - Booster for Pfizer series) [facility] Start: 06-16-2021 COLORECTAL CANCER SCREENING COLORECTAL CANCER SCREENING [facility] Start: 06-16-2021 FECAL OCCULT BLOOD FECAL OCCULT BLOO D [facility] Start: 11-15-2019 DTaP/Tdap/Td vaccine (1 - Tdap) DTaP/Tdap/Td vaccine (1 - Tdap) [facility] [place] Immunizations Immunization Date Immunization Notes Care Provider Ori zepeda 07-16-2020 COVID-19 vaccine, ag e 12+ yr (PFIZER-BIONTECH - PURPLE TOP) Denisse Rodolfo URENA.COMMUNICATIONS ADMINISTRATOR Work Phone: [facility] 06-23-2020 COVID-19 vaccine, ag e 12+ yr (PFIZER-BIONTECH - PURPLE TOP) Denisse Rodolfo URENA.COMMUNICATIONS ADMINISTRATOR Work Phone: [facility] Payers Date Payer Category Payer Unknown MMO MMO [employer] [id number] 2017-Present [phone] [address] [address] [place] [address] Indemnity [id number] 2017 Unknown MMO MMO [employer] [id number] 2017-Present [phone] [address] [place] [address] Indemnity [id number] 2017 Unknown [id number] 2015 Unknown [facility] xxxxxxxxxxxx 2015-Present [phone] [address] [address] [place] [address] xxxxxxxxxxxx [id number] Social History Date Type Detail Facility Start: 11-14-2018 End: 01-12-2023 Tobacco smoking status NHIS Never smoker [facility] End: 04-04-2012 History of tobacco use Chews Tobacco [place] Start: 11-14-2018 End: 03-12-2020 Alcohol intake Yes [facility] Start: 11-14-2018 History SDOH Alcohol Frequency 3 [place] Start: 11-14-2018 History SDOH Alcohol Std Drinks 2 [place] Start: 11-14-2018 History SDOH Alcohol Binge 1 [place] Start: 11-14-2018 History SDOH Physica l Activity DPW 0 [place], [place] Start: 1970 Sex Assigned At Not on file M [place], [place] End: 04-04-2012 History of tobacco use Snuff User [facility] Start: 09-12-2021 End: 01-12-2023 Alcohol intake Current drinker of alcohol (finding) [facility] Start: 04-17-2013 History SDOH Alcohol Comment occasionally [facility] Start: 01-12-2023 Tobacco use and exposure User of smokeless tobacco [facility] Start: 03-12-2020 End: 01-12-2023 History of Social function [facility] Adult Depression Screening Assessment 0 [facility] Goals Date Patient Goal Desired Activity /State Progress note 01-12-2023 Note Date & Type Note Facility 01-12-2023 Note HNO ID: [id number] Author: Yasmin Fisher APRN.COMMUNICATIONS ADMINISTRATOR Service: ? Author Type: Nurse Practitioner Type: Progress Notes Filed: 01/12/2023 4:23 PM Note Text: Subjective The history is provided by the patient. No foreign languages department chair was used. JOS Pritchard is a 52 [...] have confirmed and edited as necessary, the [facility] Review of Systems Constitutional: Negative for [...] warranting prompt ER evaluation. Yasmin Fisher APRN.MELISA [facility] Instructions 01-12-2023 Patient Instructions Note Date & Type Note [facility] 01-12-2023 Instructions Yasmin Fisher APRN.MELISA - 01/12/2023 4:21 PM EDT Zyrtec 10 mg By mouth daily at bedtime Flonase or Nasonex 2 sprays in each nostril once a day If no improvement over the next week would recommend you follow up with ENT for further evaluation and treatment . documented in this encounter [facility] History of Present illness Narrative 01-12-2023 Yasmin Fisher APRN.MELISA - 01/12/2023 4:17 PM EDT Note Date & Type Note Facility 01-12-2023 History of Presen t illness Narrative Subjective The history is provided by the patient. No foreign languages department chair was used. HPI Francheska is a 52 [...] have confirmed and edited as necessary, the [facility] Review of Systems Constitutional: Negative for [...] detail warranting prompt ER evaluation. Yasmin Fisher APRN.COMMUNICATIONS ADMINISTRATOR documented in this encounter [facility] History of Present illness Narrative 09-12-2021 Denisse [...] Denisse Reynolds APRN.MELISA documented in this encounter [facility] History of Past illness Narrative 06-09-2020 Note Date & Type Note Facility documented as of this encounter (statuses as of 09/12/2021) [facility] History of Past illness Narrative 06-09-2020 Note Date & Type Note Facility documented as of this encounter (statuses as of 01/13/2023) [facility] Evaluation note Note Date & Type Note Facility documented in this encounter [facility] Evaluation note Note Date & Type Note Facility documented in this encounter [facility] Assessments Diagnosis Hyperlipidemia, unspecified hyperlipidemia type Advance Directives No Advanced Directives Records FoundDocuments on File Type Date Recorded Patient Turkey 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 Expl anation Advance Directives and Living Will Power of Baker Operator Automatic Summary Purpose Family History No Family History Records FoundNo Family History Records Found Additional Source Comments (unrecognized sect ion and content) No Status Records FoundNo Status Records Found INFORMATION SOURCE (unrecogn ized section and content) DATE CREATED AUTHOR AUTHOR'S ORGANIZ ATION 01/14/2023 [facility] Source Comments (unrecognize d section and content) In the event this informatio n is protected by the Federal Confidentiality of Alcohol and Drug Abuse Patient Records regulations: The Federal rules restrict any use of the information to criminally investigate or prosecute any alcohol or drug abuse patient[facility] event this information is protected by the Federal Confidentiality of Alcohol and Drug Abuse Patient Records regulations: The Federal rules restrict any use of the information to criminally investigate or prosecute any alcohol or drug abuse patient.[facility] Reason for Visit (unrecogniz ed section and content) Reason Comments Ear Pain Left ear pain x 1 we ek Care Teams (unrecognized sec tion and content) Air Lift Operator Relationship Specialty Start Date End Date Vince Brown MD [address] [place] [address] PCP - General Family Medicine 06/02/20 FOR [...] BE BASED ON THE PRIMARY CLINICAL RECORDS. [employer] provides no warranty or guarantee of the accuracy or completeness of information in this document.
[2023-05-11 11:31] LABS: Hemoglobin A1c 5.3 % (3.8-5.6)
[2023-05-11 11:49] LABS: Cholesterol 326 mg/dL (200); High Density Lipoprotein 29 mg/dL; Triglycerides 508 mg/dL
== END | disposition home or self-care (01) ==
LOC: MFPLAB 08:29
PROVIDERS: PCP Family Medicine; Visit Provider Family Medicine
DX: R73.09 Other abnormal glucose (principal); R07.9 Chest pain, unspecified
CPT/HCPCS: 36415; 80061; 83036

== ENCOUNTER → 2023-05-25 | Outpatient (CLI) | payer OTHER, SELFPAY ==
--- NOTE | 2023-05-26 06:28 | STRESSREP ---
Stress Test Report Exercise stress test. 53-year-old man with a history of chest pain Stress protocol: Resting EKG demonstrates normal sinus rhythm with a rate of 62 bpm resting blood pressure is 132/88 mmHg. The patient exercised according to the regular Kyler protocol for a total duration of 9 minutes attaining a maximum heart rate of 142 bpm which was 85% of maximum predicted heart rate; the maximum workload was 10.1 metabolic equivalents. At rest there were no ST or T wave changes noted to suggest ischemia and at peak exercise upsloping ST changes only were noted which did not meet the criteria for ischemia. No clinical angina was noted the test was terminated due to the target heart rate being achieved/fatigue. The peak blood pressure was 170/92 mmHg. Rate-pressure product was 24,000. Conclusion: Stress test with no EKG criteria for ischemia at a high workload
== END | disposition home or self-care (01) ==
LOC: CVS 11:31
PROVIDERS: PCP Family Medicine; Referring Provider Family Medicine; Visit Provider Family Medicine
DX: R07.9 Chest pain, unspecified (principal)
CPT/HCPCS: 93017

== ENCOUNTER → 2023-07-12 | Outpatient (CLI) | payer OTHER, SELFPAY ==
[2023-07-12 17:32] LABS: Absolute Lymphocyte Count 2.58 X10^3/uL (0.83-4.51); Absolute Neutrophil Count 3.9 X10^3/uL (2.0-7.7); Basophil% 1.4 % (0-1); Eosinophils% 1.4 % (0-5); Hematocrit 47.5 % (40-54); Hemoglobin 15.5 g/dL (13.0-16.5); Lymphocyte # 2.58 X10^3/ul (0.83-4.51); Lymphocyte % 35.9 % (19-41); Mean Corp Hgb Conc 32.6 g/dL (32-36); Mean Corpuscular Hgb 31.3 pg (27.0-32.0); Mean Corpuscular Volume 95.8 fL (80-94); Mean Platelet Vol. 9.9 fl (6.2-12.0); NRBC Flagged by Analyzer 0 % (0-5); Neutrophil # 3.89 X10^3/uL (2.7-7.7); Neutrophil % 54.2 % (47-70); Platelet Count 290 K/mm3 (150-450); RBC Distribution Width SD 45.5 fl (35.1-43.9); Red Blood Count 4.96 M/mm3 (4.6-6.2); White Blood Count 7.2 K/mm3 (4.4-11.0)
[2023-07-12 18:04] LABS: ALB/GLOB Ratio 1.1 RATIO (0.9-2.4); AST(SGOT) 31 U/L (15-37); Alanine Aminotransfer ALT/SGPT 39 U/L (16-61); Albumin, Serum 3.8 g/dL (3.2-5.0); Alkaline Phosphatase 169 U/L (45-117); Anion Gap 6 (5-15); BUN 9 mg/dL (7-18); BUN/Creat Ratio 8.3 RATIO (10-20); Calcium,Total 8.7 mg/dL (8.5-10.1); Chloride 107 mmol/L (98-107); Creatinine, Serum 1.08 mg/dL (0.70-1.30); EST Glomerular Filtration Rate 76 mL/min (>60); Est Glom Filt Rate - Afr Amer 92 mL/min (>60); Globulin 3.6 g/dL (2.2-4.2); Glucose 100 mg/dL (74-106); Potassium 4.3 mmol/L (3.5-5.1); Protein, Total 7.4 g/dL (6.4-8.2); Sodium Level 140 mmol/L (136-145)
== END | disposition home or self-care (01) ==
LOC: MTLAB 16:14
PROVIDERS: PCP Family Medicine; Referring Provider Internal Medicine Rheumatology; Visit Provider Internal Medicine Rheumatology
DX: L40.59 Other psoriatic arthropathy (principal); L40.8 Other psoriasis; F32.A Depression, unspecified; E78.5 Hyperlipidemia, unspecified; Z79.899 Other long term (current) drug therapy
CPT/HCPCS: 36415; 80053; 85025

== ENCOUNTER → 2023-09-27 | Outpatient (CLI) | payer OTHER, SELFPAY ==
[2023-09-27 18:09] LABS: Absolute Neutrophil Count 4.9 X10^3/uL (2.0-7.7); Basophil# 0.08 X10^3/uL; Eosinophil# 0.08 X10^3/uL; Hematocrit 41.1 % (40-54); Hemoglobin 13.7 g/dL (13.0-16.5); Lymphocyte % 34.7 % (19-41); Mean Corp Hgb Conc 33.3 g/dL (32-36); Mean Corpuscular Hgb 31.6 pg (27.0-32.0); Mean Corpuscular Volume 94.9 fL (80-94); Mean Platelet Vol. 9.9 fl (6.2-12.0); Monocyte# 0.43 X10^3/uL; Monocyte% 5.1 % (0-10); NRBC Flagged by Analyzer 0 % (0-5); Neutrophil # 4.85 X10^3/uL (2.7-7.7); Neutrophil % 58.1 % (47-70); Platelet Count 303 K/mm3 (150-450); RBC Distribution Width CV 12.7 % (11.6-14.6); RBC Distribution Width SD 43.8 fl (35.1-43.9); Red Blood Count 4.33 M/mm3 (4.6-6.2); White Blood Count 8.4 K/mm3 (4.4-11.0)
[2023-09-27 18:35] LABS: AST(SGOT) 33 U/L (15-37); Alanine Aminotransfer ALT/SGPT 36 U/L (16-61); Albumin, Serum 3.7 g/dL (3.2-5.0); Alkaline Phosphatase 162 U/L (45-117); Anion Gap 8 (5-15); BUN 7 mg/dL (7-18); BUN/Creat Ratio 6.5 RATIO (10-20); Calcium,Total 8.8 mg/dL (8.5-10.1); Chloride 106 mmol/L (98-107); Creatinine, Serum 1.08 mg/dL (0.70-1.30); EST Glomerular Filtration Rate 76 mL/min (>60); Est Glom Filt Rate - Afr Amer 91 mL/min (>60); Globulin 3.6 g/dL (2.2-4.2); Glucose 96 mg/dL (74-106); Potassium 3.3 mmol/L (3.5-5.1); Protein, Total 7.3 g/dL (6.4-8.2); Sodium Level 139 mmol/L (136-145)
== END | disposition home or self-care (01) ==
LOC: MTLAB 16:03
PROVIDERS: PCP Family Medicine; Referring Provider Internal Medicine Rheumatology; Visit Provider Internal Medicine Rheumatology
DX: L40.59 Other psoriatic arthropathy (principal); Z79.899 Other long term (current) drug therapy; L40.8 Other psoriasis
CPT/HCPCS: 36415; 80053; 85025

== ENCOUNTER → 2024-01-09 | Outpatient (CLI) | payer OTHER, SELFPAY ==
[2024-01-09 18:05] LABS: Absolute Lymphocyte Count 2.23 X10^3/uL (0.83-4.51); Absolute Neutrophil Count 4.4 X10^3/uL (2.0-7.7); Basophil# 0.07 X10^3/uL; Basophil% 0.9 % (0-1); Eosinophil# 0.13 X10^3/uL; Eosinophils% 1.7 % (0-5); Hematocrit 41.9 % (40-54); Hemoglobin 13.9 g/dL (13.0-16.5); Lymphocyte # 2.23 X10^3/ul (0.83-4.51); Lymphocyte % 29.4 % (19-41); Mean Corp Hgb Conc 33.2 g/dL (32-36); Mean Corpuscular Hgb 32.1 pg (27.0-32.0); Mean Corpuscular Volume 96.8 fL (80-94); Mean Platelet Vol. 9.6 fl (6.2-12.0); Monocyte# 0.73 X10^3/uL; Monocyte% 9.6 % (0-10); NRBC Flagged by Analyzer 0 % (0-5); Neutrophil # 4.41 X10^3/uL (2.7-7.7); Neutrophil % 58.1 % (47-70); Platelet Count 278 K/mm3 (150-450); RBC Distribution Width CV 12.9 % (11.6-14.6); RBC Distribution Width SD 45.8 fl (35.1-43.9); Red Blood Count 4.33 M/mm3 (4.6-6.2); White Blood Count 7.6 K/mm3 (4.4-11.0)
[2024-01-09 18:25] LABS: ALB/GLOB Ratio 1.1 RATIO (0.9-2.4); AST(SGOT) 20 U/L (15-37); Alanine Aminotransfer ALT/SGPT 22 U/L (16-61); Albumin, Serum 3.8 g/dL (3.2-5.0); Alkaline Phosphatase 168 U/L (45-117); Anion Gap 8 (5-15); BUN 13 mg/dL (7-18); Calcium,Total 8.8 mg/dL (8.5-10.1); Chloride 106 mmol/L (98-107); Creatinine, Serum 1.08 mg/dL (0.70-1.30); EST Glomerular Filtration Rate 76 mL/min (>60); Est Glom Filt Rate - Afr Amer 91 mL/min (>60); Globulin 3.4 g/dL (2.2-4.2); Glucose 80 mg/dL (74-106); Potassium 3.6 mmol/L (3.5-5.1); Protein, Total 7.2 g/dL (6.4-8.2); Sodium Level 138 mmol/L (136-145)
== END | disposition home or self-care (01) ==
PROVIDERS: PCP Family Medicine; Referring Provider Internal Medicine Rheumatology; Visit Provider Internal Medicine Rheumatology
DX: L40.59 Other psoriatic arthropathy (principal); L40.8 Other psoriasis; Z79.899 Other long term (current) drug therapy
CPT/HCPCS: 36415; 80053; 85025

== ENCOUNTER → 2024-03-02 | Outpatient (CLI) | payer OTHER, SELFPAY ==
[2024-03-02 12:21] LABS: Cholesterol 216 mg/dL (200); High Density Lipoprotein 36 mg/dL; PSA,Total - Annual Screen 3.28 ng/mL (0.00-4.00); Triglycerides 287 mg/dL; Very Low Density Lipoprotein 57 mg/dL (5-40)
== END | disposition home or self-care (01) ==
LOC: MFPLAB 10:02
PROVIDERS: PCP Family Medicine; Referring Provider Family Medicine; Visit Provider Family Medicine
DX: E78.5 Hyperlipidemia, unspecified (principal); Z12.5 Encounter for screening for malignant neoplasm of prostate
CPT/HCPCS: 36415; 80061; 84153; G0103

== ENCOUNTER → 2024-04-05 | Outpatient (CLI) | payer OTHER, SELFPAY ==
[2024-04-05 17:36] LABS: Absolute Lymphocyte Count 2.51 X10^3/uL (0.83-4.51); Absolute Neutrophil Count 6.3 X10^3/uL (2.0-7.7); Basophil# 0.12 X10^3/uL; Basophil% 1.2 % (0-1); Eosinophil# 0.18 X10^3/uL; Eosinophils% 1.8 % (0-5); Hematocrit 47.6 % (40-54); Hemoglobin 15.5 g/dL (13.0-16.5); Lymphocyte # 2.51 X10^3/ul (0.83-4.51); Lymphocyte % 24.8 % (19-41); Mean Corp Hgb Conc 32.6 g/dL (32-36); Mean Corpuscular Hgb 32.1 pg (27.0-32.0); Mean Corpuscular Volume 98.6 fL (80-94); Mean Platelet Vol. 9.1 fl (6.2-12.0); Monocyte# 1.03 X10^3/uL; Monocyte% 10.2 % (0-10); NRBC Flagged by Analyzer 0 % (0-5); Neutrophil # 6.28 X10^3/uL (2.7-7.7); Neutrophil % 61.8 % (47-70); Platelet Count 372 K/mm3 (150-450); RBC Distribution Width CV 13.6 % (11.6-14.6); RBC Distribution Width SD 48.1 fl (35.1-43.9); Red Blood Count 4.83 M/mm3 (4.6-6.2); White Blood Count 10.1 K/mm3 (4.4-11.0)
[2024-04-05 18:04] LABS: ALB/GLOB Ratio 1.1 RATIO (0.9-2.4); AST(SGOT) 17 U/L (15-37); Alanine Aminotransfer ALT/SGPT 30 U/L (16-61); Albumin, Serum 4.3 g/dL (3.2-5.0); Alkaline Phosphatase 157 U/L (45-117); Anion Gap 4 (5-15); BUN 16 mg/dL (7-18); BUN/Creat Ratio 12.3 RATIO (10-20); Calcium,Total 9.5 mg/dL (8.5-10.1); Chloride 106 mmol/L (98-107); EST Glomerular Filtration Rate 61 mL/min (>60); Est Glom Filt Rate - Afr Amer 74 mL/min (>60); Globulin 3.8 g/dL (2.2-4.2); Glucose 83 mg/dL (74-106); Potassium 3.8 mmol/L (3.5-5.1); Protein, Total 8.1 g/dL (6.4-8.2); Sodium Level 139 mmol/L (136-145)
== END | disposition home or self-care (01) ==
PROVIDERS: PCP Family Medicine; Referring Provider Internal Medicine Rheumatology; Visit Provider Internal Medicine Rheumatology
DX: L40.59 Other psoriatic arthropathy (principal); L40.8 Other psoriasis; Z79.899 Other long term (current) drug therapy
CPT/HCPCS: 36415; 80053; 85025

== ENCOUNTER → 2024-06-26 | Outpatient (CLI) | payer OTHER, SELFPAY ==
[2024-06-26 17:46] LABS: Absolute Lymphocyte Count 1.79 X10^3/uL (0.83-4.51); Absolute Neutrophil Count 3.4 X10^3/uL (2.0-7.7); Basophil# 0.07 X10^3/uL; Basophil% 1.2 % (0-1); Eosinophil# 0.13 X10^3/uL; Eosinophils% 2.2 % (0-5); Hematocrit 41.7 % (40-54); Hemoglobin 13.9 g/dL (13.0-16.5); Lymphocyte # 1.79 X10^3/ul (0.83-4.51); Lymphocyte % 29.9 % (19-41); Mean Corp Hgb Conc 33.3 g/dL (32-36); Mean Corpuscular Hgb 32.9 pg (27.0-32.0); Mean Corpuscular Volume 98.8 fL (80-94); Mean Platelet Vol. 9.7 fl (6.2-12.0); Monocyte# 0.56 X10^3/uL; Monocyte% 9.3 % (0-10); NRBC Flagged by Analyzer 0 % (0-5); Neutrophil # 3.42 X10^3/uL (2.7-7.7); Neutrophil % 57.1 % (47-70); Platelet Count 252 K/mm3 (150-450); RBC Distribution Width CV 13.9 % (11.6-14.6); RBC Distribution Width SD 49.1 fl (35.1-43.9); Red Blood Count 4.22 M/mm3 (4.6-6.2)
[2024-06-26 20:08] LABS: ALB/GLOB Ratio 1.6 RATIO (0.9-2.4); AST(SGOT) 26 U/L (<=37); Alanine Aminotransfer ALT/SGPT 23 U/L (<=46); Albumin, Serum 4.3 g/dL (3.5-5.0); Alkaline Phosphatase 137 U/L (40-129); Anion Gap 10 (5-15); BUN 16 mg/dL (4-19); BUN/Creat Ratio 13.6 RATIO (10-20); Calcium,Total 9.2 mg/dL (7.6-11.0); Carbon Dioxide 23.8 mmol/L (21.0-32.0); Chloride 106 mmol/L (98-108); Creatinine, Serum 1.17 mg/dL (0.70-1.20); EST Glomerular Filtration Rate 74 (>60); Globulin 2.7 g/dL (2.2-4.2); Glucose 85 mg/dL (70-99); Potassium 3.7 mmol/L (3.3-5.1); Sodium Level 140 mmol/L (133-145); Total Bilirubin 0.78 mg/dL (0.00-1.30)
== END | disposition home or self-care (01) ==
LOC: MTLAB 15:45
PROVIDERS: PCP Family Medicine; Referring Provider Internal Medicine Rheumatology; Visit Provider Internal Medicine Rheumatology
DX: L40.59 Other psoriatic arthropathy (principal); Z79.899 Other long term (current) drug therapy
CPT/HCPCS: 36415; 80053; 85025

== ENCOUNTER → 2024-09-05 | Outpatient (CLI) | payer OTHER, SELFPAY ==
[2024-09-05 18:02] LABS: Absolute Lymphocyte Count 1.88 X10^3/uL (0.83-4.51); Absolute Neutrophil Count 5.5 X10^3/uL (2.0-7.7); Basophil# 0.06 X10^3/uL; Basophil% 0.8 % (0-1); Eosinophil# 0.06 X10^3/uL; Eosinophils% 0.8 % (0-5); Hematocrit 41.9 % (40-54); Hemoglobin 13.8 g/dL (13.0-16.5); Lymphocyte # 1.88 X10^3/ul (0.83-4.51); Mean Corp Hgb Conc 32.9 g/dL (32-36); Mean Corpuscular Hgb 32.9 pg (27.0-32.0); Mean Corpuscular Volume 99.8 fL (80-94); Mean Platelet Vol. 9.7 fl (6.2-12.0); Monocyte# 0.36 X10^3/uL; Monocyte% 4.6 % (0-10); NRBC Flagged by Analyzer 0 % (0-5); Neutrophil # 5.46 X10^3/uL (2.7-7.7); Neutrophil % 69.5 % (47-70); Platelet Count 315 K/mm3 (150-450); RBC Distribution Width CV 13.3 % (11.6-14.6); RBC Distribution Width SD 48.2 fl (35.1-43.9); White Blood Count 7.8 K/mm3 (4.4-11.0)
[2024-09-05 18:25] LABS: ALB/GLOB Ratio 1.5 RATIO (0.9-2.4); AST(SGOT) 25 U/L (<=37); Alanine Aminotransfer ALT/SGPT 27 U/L (<=46); Albumin, Serum 4.2 g/dL (3.5-5.0); Alkaline Phosphatase 149 U/L (40-129); Anion Gap 12 (5-15); BUN 13 mg/dL (4-19); BUN/Creat Ratio 11.5 RATIO (10-20); Carbon Dioxide 22.7 mmol/L (21.0-32.0); Chloride 105 mmol/L (98-108); Cholesterol 194 mg/dL (<=200); Creatinine, Serum 1.17 mg/dL (0.70-1.20); EST Glomerular Filtration Rate 74 (>60); Globulin 2.7 g/dL (2.2-4.2); Glucose 97 mg/dL (70-99); High Density Lipoprotein 35 mg/dL; Low Density Lipoprotein Calc. 110 mg/dL; Potassium 4.1 mmol/L (3.3-5.1); Protein, Total 6.9 g/dL (5.9-8.4); Sodium Level 139 mmol/L (133-145); Total Bilirubin 0.74 mg/dL (0.00-1.30); Triglycerides 247 mg/dL; Very Low Density Lipoprotein 49 mg/dL (5-40); cholesterol:hdl ratio screen 5.57
== END | disposition home or self-care (01) ==
LOC: MFPLAB 16:30
PROVIDERS: PCP Family Medicine; Referring Provider Family Medicine; Visit Provider Family Medicine
DX: K21.9 Gastro-esophageal reflux disease without esophagitis (principal); E78.5 Hyperlipidemia, unspecified
CPT/HCPCS: 36415; 80053; 80061; 85025

== ENCOUNTER → 2024-09-07 | Outpatient (CLI) | payer OTHER, SELFPAY ==
--- NOTE | 2024-09-07 11:41 | US_ITS ---
PROCEDURE: THYROID 09/07/2024 REASON FOR EXAM: NODULE TECHNIQUE: High-frequency thyroid ultrasound, including grayscale and color-flow images. REFERENCE LINKS: TI-RADS Chart: [email or web address] [email or web address] Calculator Tool with Reference Images: [email or web address] COMPARISON: Thyroid ultrasound on 09/28/2022 FINDINGS: Right thyroid lobe size: 4.6 x 1.7 x 1.5 cm Left thyroid lobe size: 4.1 x 1.7 x 1.4 cm Isthmus: 0.2 cm Background parenchymal echotexture is homogeneous. Nodules: 1. Lobe: Right, Location: Upper, Size: 0.8 x 0.5 x 0.9 cm, Stability: Stable Composition: Solid or almost completely solid (+2) Echogenicity: Hyper to Isoechoic (+1) Margin: Ill-defined (+0) Shape: Wider than tall (+0) Echogenic Foci: None (+0) TI-RADS: 3 US/Thyroid IMPRESSION: Right thyroid lobe nodule measuring 0.9 cm is unchanged. No follow-up or FNA i s recommended per ACR TI-RADS guidelines. Reading Location: [facility]
== END | disposition home or self-care (01) ==
LOC: US 11:41
PROVIDERS: PCP Family Medicine; Referring Provider Family Medicine; Visit Provider Family Medicine
DX: E04.1 Nontoxic single thyroid nodule (principal)
CPT/HCPCS: 76536

== ENCOUNTER → 2024-09-25 | Outpatient (CLI) | payer OTHER, SELFPAY ==
[2024-09-25 17:51] LABS: Absolute Lymphocyte Count 2.02 X10^3/uL (0.83-4.51); Absolute Neutrophil Count 4.6 X10^3/uL (2.0-7.7); Basophil# 0.09 X10^3/uL; Basophil% 1.2 % (0-1); Eosinophil# 0.12 X10^3/uL; Eosinophils% 1.6 % (0-5); Hematocrit 44.3 % (40-54); Hemoglobin 14.7 g/dL (13.0-16.5); Lymphocyte # 2.02 X10^3/ul (0.83-4.51); Lymphocyte % 26.9 % (19-41); Mean Corp Hgb Conc 33.2 g/dL (32-36); Mean Corpuscular Volume 99.3 fL (80-94); Mean Platelet Vol. 10.1 fl (6.2-12.0); Monocyte% 9.3 % (0-10); NRBC Flagged by Analyzer 0 % (0-5); Neutrophil # 4.55 X10^3/uL (2.7-7.7); Neutrophil % 60.7 % (47-70); Platelet Count 369 K/mm3 (150-450); RBC Distribution Width CV 13.7 % (11.6-14.6); RBC Distribution Width SD 49.2 fl (35.1-43.9); Red Blood Count 4.46 M/mm3 (4.6-6.2); White Blood Count 7.5 K/mm3 (4.4-11.0)
[2024-09-25 18:17] LABS: ALB/GLOB Ratio 1.6 RATIO (0.9-2.4); AST(SGOT) 27 U/L (<=37); Alanine Aminotransfer ALT/SGPT 29 U/L (<=46); Albumin, Serum 4.3 g/dL (3.5-5.0); Alkaline Phosphatase 157 U/L (40-129); Anion Gap 13 (5-15); BUN 14 mg/dL (4-19); Carbon Dioxide 20.9 mmol/L (21.0-32.0); Chloride 106 mmol/L (98-108); Creatinine, Serum 1.29 mg/dL (0.70-1.20); EST Glomerular Filtration Rate 65 (>60); Globulin 2.7 g/dL (2.2-4.2); Glucose 107 mg/dL (70-99); Potassium 4.1 mmol/L (3.3-5.1); Sodium Level 140 mmol/L (133-145); Total Bilirubin 0.83 mg/dL (0.00-1.30)
== END | disposition home or self-care (01) ==
LOC: MTLAB 15:53
PROVIDERS: PCP Family Medicine; Referring Provider Internal Medicine Rheumatology; Visit Provider Internal Medicine Rheumatology
DX: L40.59 Other psoriatic arthropathy (principal); L40.8 Other psoriasis; Z79.899 Other long term (current) drug therapy
CPT/HCPCS: 36415; 80053; 85025

== ENCOUNTER → 2024-12-24 | Outpatient (CLI) | payer OTHER, SELFPAY ==
[2024-12-24 18:08] LABS: Hematocrit 42.1 % (40-54); Hemoglobin 14.2 g/dL (13.0-16.5); Immature Granulocytes Count 0.010 X10^3/uL (0.0-0.0); Mean Corp Hgb Conc 33.7 g/dL (32-36); Mean Corpuscular Volume 97.9 fL (80-94); Mean Platelet Vol. 9.7 fl (6.2-12.0); NRBC Flagged by Analyzer 0 % (0-5); Platelet Count 254 K/mm3 (150-450); RBC Distribution Width CV 13.2 % (11.6-14.6); RBC Distribution Width SD 46.5 fl (35.1-43.9); Red Blood Count 4.30 M/mm3 (4.6-6.2); White Blood Count 6.5 K/mm3 (4.4-11.0)
[2024-12-24 18:47] LABS: AST(SGOT) 25 U/L (<=37); Alanine Aminotransfer ALT/SGPT 22 U/L (<=46); Albumin, Serum 4.4 g/dL (3.5-5.0); Alkaline Phosphatase 159 U/L (40-129); Anion Gap 12 (5-15); BUN 14 mg/dL (4-19); BUN/Creat Ratio 11.5 RATIO (10-20); Calcium,Total 9.1 mg/dL (7.6-11.0); Carbon Dioxide 23.2 mmol/L (21.0-32.0); Chloride 104 mmol/L (98-108); Globulin 2.6 g/dL (2.2-4.2); Glucose 96 mg/dL (70-99); Potassium 4.3 mmol/L (3.3-5.1)
[2024-12-26 08:09] LABS: QNTFERON TB Mitogen Value > 10.00 IU/mL (.); QNTFERON TB Nil Value 0.12 IU/mL (.); QNTFERON TB1+ Ag Value 0.07 IU/mL (.); QNTFERON TB2+ Ag Value 0.08 IU/mL (.); QNTIFERON TB Positive Criteria Negative (Negative)
== END | disposition home or self-care (01) ==
LOC: MTLAB 16:46
PROVIDERS: PCP Family Medicine; Referring Provider Internal Medicine Rheumatology; Visit Provider Internal Medicine Rheumatology
DX: L40.59 Other psoriatic arthropathy (principal); Z79.899 Other long term (current) drug therapy
CPT/HCPCS: 36415; 80053; 85025; 86480

== ENCOUNTER → 2025-04-02 | Outpatient (CLI) | payer OTHER, SELFPAY ==
[2025-04-02 15:05] LABS: Hematocrit 47.2 % (40-54); Hemoglobin 16.2 g/dL (13.0-16.5); Immature Granulocytes Count 0.010 X10^3/uL (0.0-0.0); Mean Corp Hgb Conc 34.3 g/dL (32-36); Mean Corpuscular Volume 95.9 fL (80-94); Mean Platelet Vol. 9.6 fl (6.2-12.0); NRBC Flagged by Analyzer 0 % (0-5); Platelet Count 288 K/mm3 (150-450); RBC Distribution Width CV 13.5 % (11.6-14.6); RBC Distribution Width SD 46.7 fl (35.1-43.9); Red Blood Count 4.92 M/mm3 (4.6-6.2); White Blood Count 5.7 K/mm3 (4.4-11.0)
[2025-04-02 15:27] LABS: AST(SGOT) 22 U/L (<=37); Alanine Aminotransfer ALT/SGPT 17 U/L (<=46); Albumin, Serum 4.4 g/dL (3.5-5.0); Alkaline Phosphatase 147 U/L (40-129); Anion Gap 11 (7-18); BUN 20 mg/dL (4-19); BUN/Creat Ratio 18.5 RATIO (10-20); Calcium,Total 9.3 mg/dL (7.6-11.0); Carbon Dioxide 23.9 mmol/L (20.0-29.0); Chloride 106 mmol/L (96-106); Globulin 2.8 g/dL (2.2-4.2); Glucose 91 mg/dL (70-99); Potassium 4.5 mmol/L (3.5-5.1)
[2025-04-02 15:33] LABS: PSA,Total - Annual Screen 3.16 ng/mL (0.02-4.00)
== END | disposition home or self-care (01) ==
LOC: MTLAB 11:19
PROVIDERS: PCP Family Medicine; Referring Provider Internal Medicine Rheumatology; Visit Provider Internal Medicine Rheumatology
DX: L40.59 Other psoriatic arthropathy (principal); Z79.899 Other long term (current) drug therapy; Z12.5 Encounter for screening for malignant neoplasm of prostate
CPT/HCPCS: 36415; 80053; 84153; 85025; G0103